=== PATIENT | female | born 1960 | race Caucasian/White ===

== ENCOUNTER → 2020-02-18 | Outpatient (CLI) | payer OTHER ==
--- NOTE | 2020-02-18 17:39 | MR ---
EXAMINATION TYPE: MR shoulder LT wo con DATE OF EXAM: 02/18/2020 COMPARISON: None HISTORY: Lt shoulder pain x 2 mos, decreased ROM, no trauma Multiplanar multiecho imaging of the left shoulder was performed with no contrast. There is mild shoulder joint effusion. Biceps tendon is intact. Subscapularis tendon is intact. Gleno id latisha appear intact. There is slight narrowing of the shoulder joint space. The supraspinatus tendon appears intact. There is 5 mm degenerative cyst in the greater tuberosity of the humerus. The AC joint shows some spur formation and mild impingement on the supraspinatus tendon . I see no focal bone destruction. IMPRESSION: No evidence of rotator cuff tear. Mild osteoarthritis and shoulder joint effusion consistent with non specific synovitis. Mild subacromial impingement due to some spurring at the AC joint.
== END | disposition home or self-care (01) ==
LOC: RADMRIMAIN 08:51
PROVIDERS: ATTEND Orthopaedic Surgery
DX: M19.012 Primary osteoarthritis, left shoulder (principal); M75.42 Impingement syndrome of left shoulder

== ENCOUNTER 2020-03-13 08:55 | Day surgery (SDC) | payer BC, OTHER ==
[2020-03-07 15:29] VITALS: BMI 20.7
--- NOTE | 2020-03-10 13:49 | HP ---
HISTORY AND PHYSICAL CHIEF COMPLAINT: Left shoulder pain and stiffness. 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 She notes a difficult time with any attempted overhead use and at night. She has tried medications in addition to stretching without much relief. PAST MEDICAL HISTORY: Significant for bipolar disorder and anxiety. PAST SURGICAL HISTORY: Significant for previous lumbar surgery. CURRENT MEDICATIONS: Valium, tramadol, risperidone. FAMILY HISTORY: Significant for cancer. SOCIAL HISTORY: Significant for social alcohol use in addition to a 1/2 pack per day tobacco use. REVIEW OF SYSTEMS: 16 point review of systems otherwise reviewed and noncontributory. PHYSICAL EXAMINATION: On examination, the patient is approximately 5 foot 7, 132 pounds of mesomorphic habitus. HEENT exam is nonfocal. NECK: Supple. She is tender about the anterior subacromial space of the left shoulder. She has moderate subacromial crepitus. Active range of motion, forward elevation 90 degrees, external rotation on side 30 degrees, internal rotation to L5. Motor strength is 5/5 for abduction and external rotation. Impingement test, Neer test are positive. Her distal neurovascular appears intact in the left upper extremity. MRI report of the left shoulder from 02/18/2020 shows the rotator cuff appears to be intact. There is some cystic change involving the greater tuberosity. Diffuse synovitis is noted. IMPRESSION: 1. Left shoulder adhesive capsulitis. 2. Left rotator cuff strain. RECOMMENDATIONS: I talked to the patient at length regarding her condition along with treatment options. At this point, she remains quite symptomatic, having pain and stiffness. After thorough discussion, she opts to proceed with manipulation under anesthesia. Risks and benefits were discussed at length in layman's in terms. We will likely perform that as an outpatient procedure utilizing IV sedation. MMODL / IJN: [id number] /
[~2020-03-13 08:55] MED LIST: CLINDAMYCIN 900 MG in DEXTROSE 5% IN WATER 50 ML IVPB ONE; DEXAMETHASONE SOD PHOSPHATE 10 MG/ML 1 ML VIAL IV ONE; LACTATED RINGERS 1,000 ML IV SCH; LIDOCAINE 1% (10MG/ML) FOR IV START INTRADERMA PRN; MIDAZOLAM 2 MG/2 ML VIAL IV PRN; ONDANSETRON 4 MG/2 ML VIAL IVP ONE
[2020-03-13 09:36] VITALS: TEMP 97.4
[2020-03-13] MEDS ORDERED: KETOROLAC 15 MG/ML 1 ML VIAL ONE (10:06)
[2020-03-13] MEDS ORDERED: PROPOFOL 10 MG/ML 20 ML VIAL IV ONE (10:06)
[2020-03-13] MEDS: HYDROmorphone 0.5 MG/0.5 ML SYRINGE IVP PRN ×2 (10:35→10:40)
[2020-03-13] MEDS: fentaNYL (PF) 50 MCG/ML 2 ML AMP IVP PRN ×2 (10:49→10:57)
[2020-03-13 11:34] VITALS: RESP 16
[2020-03-13] MEDS ORDERED: HYDROcodone/APAP 7.5-325MG 1 EACH TAB PO ONE (11:55)
[2020-03-13] MEDS ORDERED: HYDROcodone/APAP 7.5-325MG 1 EACH TAB ONE (11:56)
[2020-03-13 12:00] VITALS: BP 132/77; PULSE 77
--- NOTE | 2020-03-14 14:18 | P.OP ---
Date of Procedure: 03/13/20 Preoperative Diagnosis: Left shoulder adhesive capsulitis Postoperative Diagnosis: Same Procedure(s) Performed: Manipulation under anesthesia Anesthesia: MAC Surgeon: Dimitrios Gonzalez Estimated Blood Loss (ml): 0 Pathology: none sent Condition: stable Disposition: PACU Indications for Procedure: The patient's 59-year-old female who presents with progressive left shoulder stiffness and pain despite conservative measures. Clinically she is noted of evidence of significant adhesive capsulitis. A discussion of the risks and benefits of manipulation under anesthesia was made with patient. She opted proceed. Risks of the surgery to include fracture, tendon rupture, recurrence of stiffness and need for subsequent procedures was discussed. Informed consent was obtained. Operative Findings: As below Description of Procedure: The patient was brought to the recovery room, and after induction of IV sedation the left shoulder was then gently manipulated. First with the arm at the side is able to obtain full external rotation. Moderate adhesions were encountered. I was able to obtain full forward elevation. Again there were moderate adhesions. I felt that adequate motion at this point. She was then monitored until fully awake. There was no blood loss. No complications were incurred.
== END 2020-03-13 12:26 | disposition home or self-care (01) ==
LOC: OR 08:55
PROVIDERS: ATTEND Orthopaedic Surgery
DX: M75.02 Adhesive capsulitis of left shoulder (principal); S43.422A Sprain of left rotator cuff capsule, initial encounter; Z88.1 Allergy status to other antibiotic agents; F41.9 Anxiety disorder, unspecified; Z79.891 Long term (current) use of opiate analgesic; Z79.899 Other long term (current) drug therapy; Z98.1 Arthrodesis status; D69.6 Thrombocytopenia, unspecified; F31.9 Bipolar disorder, unspecified; X58.XXXA Exposure to other specified factors, initial encounter; Z80.9 Family history of malignant neoplasm, unspecified; F17.210 Nicotine dependence, cigarettes, uncomplicated
CPT/HCPCS: 23700; J1100; J2405; J3010; J1885; J2704; J1170

== ENCOUNTER → 2021-04-25 | Outpatient (CLI) | payer OTHER ==
--- NOTE | 2021-04-25 12:39 | XR ---
EXAMINATION TYPE: XR chest 2V DATE OF EXAM: 04/25/2021 COMPARISON: 05/26/13 HISTORY: Shortness of breath TECHNIQUE: Frontal and lateral views of the chest are obtained. FINDINGS: Scattered senescent parenchymal changes noted. Hyperinflation compatible with COPD. No evidence for infiltrate. No evidence for atelectasis. Heart size is stable. Mediastinal structures are stable and grossly unremarkable. No evidence for hilar prominence. Degenerative changes dorsal spine. IMPRESSION: 1. No evidence for acute pulmonary disease.
== END | disposition home or self-care (01) ==
LOC: RADXRMAIN 11:52
PROVIDERS: ATTEND Internal Medicine
DX: R06.02 Shortness of breath (principal)
CPT/HCPCS: 71046

== ENCOUNTER → 2021-08-30 | Outpatient (CLI) | payer OTHER ==
--- NOTE | 2021-08-30 07:51 | CT ---
EXAMINATION TYPE: CT brain wo con DATE OF EXAM: 08/30/2021 COMPARISON: None HISTORY: Headache after fall [address] DLP: [address] of the brain was performed. The ventricles, basal cisterns and sulci overlying the cerebral convexities demonstrate mild enlargem ent. There is no evidence for intracranial hemorrhage or sulcal effacement. There is decreased attenuation about the periventricular white matter and deep white matter of both c erebral hemispheres, compatible with chronic small vessel ischemia. Differential diagnosis does inclu de demyelination. No mass effects are seen.No midline shift. Osseous calvarium is intact. If symptoms persist consider MRI. IMPRESSION: 1. Age related atrophic and chronic small vessel ischemic change without acute intracranial process s een at this time.
== END | disposition home or self-care (01) ==
LOC: RADCTMAIN 07:01
PROVIDERS: ATTEND Internal Medicine
DX: R51.9 Headache, unspecified (principal)
CPT/HCPCS: 70450

== ENCOUNTER 2021-12-10 21:37 | Emergency (ER) | payer OTHER ==
[2021-12-10 21:48] VITALS: RESP 16; TEMP 97.8
[2021-12-10 22:28] LABS: Basophils % (A) 0 %; Eosinophils % (A) 0 %; HCT 43.5 % (34.0-46.0); HGB 14.8 gm/dL (11.4-16.0); Lymphocytes % (A) 58 %; MCH 33.2 pg (25.0-35.0); MCHC 33.9 g/dL (31.0-37.0); MCV 97.7 fL (80.0-100.0); Mean Platelet Volume 8.3; Monocytes # (A) 0.2 k/uL (0-1.0); Monocytes % (A) 3 %; Neutrophils # (A) 2.5 k/uL (1.3-7.7); Neutrophils % (A) 36 %; Platelet Count 174 k/uL (150-450); RBC 4.45 m/uL (3.80-5.40); RDW 12.6 % (11.5-15.5)
[2021-12-10 22:37] LABS: ALT 36 U/L (4-34); AST 41 U/L (14-36); African American GFR (CKD) >90 (>60 ml/min/1.73 sqM); Albumin 4.7 g/dL (3.5-5.0); Alkaline Phosphatase 80 U/L (38-126); Anion Gap 12 mmol/L; Blood Urea Nitrogen 4 mg/dL (7-17); Calcium 9.5 mg/dL (8.4-10.2); Carbon Dioxide 21 mmol/L (22-30); Chloride 106 mmol/L (98-107); Glucose 98 mg/dL (74-99); Non-African American GFR(CKD) >90 (>60 ml/min/1.73 sqM); Potassium 3.9 mmol/L (3.5-5.1); Sodium 139 mmol/L (137-145); Total Bilirubin 0.2 mg/dL (0.2-1.3); Total Protein 7.4 g/dL (6.3-8.2)
[2021-12-10 22:44] LABS: Partial Thromboplastin Time 23.3 sec (22.0-30.0); Prothrombin Time 10.6 sec (9.0-12.0)
[2021-12-11] MEDS ORDERED: SODIUM CHLORIDE 0.9% 500 ML 500 ML IV STA (01:54)
[2021-12-11] MEDS ORDERED: MECLIZINE 12.5 MG TAB PO STA (01:55)
--- NOTE | 2021-12-11 02:56 | CT ---
EXAMINATION TYPE: CT brain wo con DATE OF EXAM: 12/11/2021 COMPARISON: 08/30/2021 HISTORY: DIZZY, WEAKNESS CT DLP: 1094.1 mGycm Automated exposure control for dose reduction was used. Ventricles and sulci appear normal. There is no mass effect or midline shift. No sign of intracranial hemorrhage. Calvarium is intact. There is normal aeration of the mastoid sinuses. No evidence of cer ebral edema. IMPRESSION: Negative unenhanced head CT scan. No change compared to the old exam.
--- NOTE | 2021-12-11 05:05 | ED ---
Dizziness HPI - General Chief Complaint: Syncope Stated Complaint: Weakness,Dizziness Time Seen by Provider: 12/11/21 01:36 Source: patient Mode of arrival: wheelchair Limitations: no limitations - History of Present Illness Initial Comments: This patient is a 61-year-old woman who presents with complaint that she has been having some dizziness going back a number days. States it was worse today. Today she had an episode in which she passed out. She denies having any trauma or injury as a result. She has not hit her head or neck. Patient did not have chest pain, dyspnea, palpitations. She currently denies any pains. MD Complaint: dizziness Onset/Timin -: days(s) Timing: gradual onset Description: lightheadedness, off-balance History of Same: No History of Trauma: No Severity: moderate Improves With: remaining still Worsens With: movement Associated Symptoms: denies other symptoms - Related Data Home Medications Medication Instructions Recorded Confirmed Diazepam [Valium] 10 mg PO HS 03/09/20 03/09/20 risperiDONE [RisperDAL] 2 mg PO HS 03/09/20 03/09/20 traMADol HCL [Ultram] 50 mg PO TID PRN 03/09/20 03/09/20 traZODone HCL 50 mg PO HS PRN 03/09/20 03/09/20 Previous Rx's Medication Instructions Recorded HYDROcodone/APAP 7.5-325MG [[place] 1 each PO Q6HR PRN #12 tab 03/13/20 7.5] Allergies Allergy/AdvReac Type Severity Reaction Status Date / Time cephalexin monohydrate Allergy Rash/Hives Verified 12/10/21 21:44 [From Keflex] Review of Systems ROS Statement: Those systems with pertinent positive or pertinent negative responses have been documented in the HPI. ROS Other: All systems not noted in ROS Statement are negative. Constitutional: Denies: fever, chills, weakness Respiratory: Denies: cough, dyspnea Cardiovascular: Reports: syncope. Denies: chest pain, palpitations, orthopnea, edema Gastrointestinal: Denies: abdominal pain, nausea, vomiting, diarrhea Genitourinary: Denies: dysuria, hematuria Musculoskeletal: Denies: back pain Skin: Denies: rash Neurological: Denies: headache, weakness, numbness, confusion Past Medical History Past Medical History: Musculoskeletal Disorder Additional Past Medical History / Comment(s): Hermelindaud's disease. Frozen Lt shoulder. History of Any Multi-Drug Resistant Organisms: None Reported Past Surgical History: Back Surgery Additional Past Surgical History / Comment(s): Cervical fusion C6-7 in 1999. Colonoscopy. Past Anesthesia/Blood Transfusion Reactions: No Reported Reaction Past Psychological History: Anxiety Smoking Status: Current every day smoker Past Alcohol Use History: Daily Past Drug Use History: None Reported - Past Family History Father Family Medical History: Cancer Additional Family Medical History / Comment(s): throat cancer Mother Family Medical History: Cancer Additional Family Medical History / Comment(s): lung cancer General Exam Limitations: no limitations General appearance: alert, in no apparent distress Head exam: Present: atraumatic, normocephalic Eye exam: Present: normal appearance. Absent: scleral icterus, conjunctival injection ENT exam: Present: normal oropharynx, mucous membranes dry Neck exam: Present: normal inspection, full ROM Respiratory exam: Present: normal lung sounds bilaterally. Absent: respiratory distress, wheezes, rales, rhonchi, stridor Cardiovascular Exam: Present: regular rate, normal rhythm, normal heart sounds. Absent: systolic murmur, diastolic murmur, rubs, gallop GI/Abdominal exam: Present: soft. Absent: distended, tenderness, guarding, rebound, rigid, mass Extremities exam: Present: normal inspection, normal capillary refill. Absent: pedal edema, calf tenderness Back exam: Present: normal inspection. Absent: CVA tenderness (R), CVA t enderness (L) Neurological exam: Present: alert, oriented X3, CN II-XII intact Skin exam: Present: warm, dry, intact, normal color. Absent: rash Course Vital Signs 12/10/21 12/11/21 12/11/21 21:45 02:06 03:00 Temperature 97.8 F Pulse Rate 69 77 80 Respiratory 16 16 16 Rate Blood Pressure 89/61 116/72 121/69 O2 Sat by Pulse 96 98 98 Oximetry 12/11/21 12/11/21 04:13 05:53 Temperature 97.8 F Pulse Rate 72 78 Respiratory 16 16 Rate Blood Pressure 110/67 109/70 O2 Sat by Pulse 97 95 Oximetry Medical Decision Making - Lab Data Result diagrams: 12/10/21 21:53 12/10/21 21:53 Lab Results 12/10/21 12/10/21 12/10/21 Range/Units 21:53 21:53 21:53 WBC 7.0 (3.8-10.6) k/uL RBC 4.45 (3.80-5.40) m/uL Hgb 14.8 (11.4-16.0) gm/dL Hct 43.5 (34.0-46.0) % MCV 97.7 (80.0-100.0) fL MCH 33.2 (25.0-35.0) pg MCHC 33.9 (31.0-37.0) g/dL RDW 12.6 (11.5-15.5) % Plt Count 174 (150-450) k/uL MPV 8.3 Neutrophils % 36 % Lymphocytes % 58 % Monocytes % 3 % Eosinophils % 0 % Basophils % 0 % Neutrophils # 2.5 (1.3-7.7) k/uL Lymphocytes # 4.0 (1.0-4.8) k/uL Monocytes # 0.2 (0-1.0) k/uL Eosinophils # 0.0 (0-0.7) k/uL Basophils # 0.0 (0-0.2) k/uL PT 10.6 (9.0-12.0) sec INR 1.0 (<1.2) APTT 23.3 (22.0-30.0) sec Sodium 139 (137-145) mmol/L Potassium 3.9 (3.5-5.1) mmol/L Chloride 106 (98-107) mmol/L Carbon Dioxide 21 L (22-30) mmol/L Anion Gap 12 mmol/L BUN 4 L (7-17) mg/dL Creatinine 0.62 (0.52-1.04) mg/dL Est GFR (CKD-EPI)AfAm >90 (>60 ml/min/1.73 sqM) Est GFR (CKD-EPI)NonAf >90 (>60 ml/min/1.73 sqM) Glucose 98 (74-99) mg/dL Calcium 9.5 (8.4-10.2) mg/dL Total Bilirubin 0.2 (0.2-1.3) mg/dL AST 41 H (14-36) U/L ALT 36 H (4-34) U/L Alkaline Phosphatase 80 (38-126) U/L Troponin I (0.000-0.034) ng/mL Total Protein 7.4 (6.3-8.2) g/dL Albumin 4.7 (3.5-5.0) g/dL Urine Color Urine Appearance (Clear) Urine pH (5.0-8.0) Ur Specific [place] (1.001-1.035) Urine Protein (Negative) Urine Glucose (UA) (Negative) Urine Ketones (Negative) Urine Blood (Negative) Urine Nitrite (Negative) Urine Bilirubin (Negative) Urine Urobilinogen (<2.0) mg/dL Ur Leukocyte Esterase (Negative) Serum Alcohol mg/dL 12/10/21 12/11/21 12/11/21 Range/Units 21:53 02:29 04:50 WBC (3.8-10.6) k/uL RBC (3.80-5.40) m/uL Hgb (11.4-16.0) gm/dL Hct (34.0-46.0) % MCV (80.0-100.0) fL MCH (25.0-35.0) pg MCHC (31.0-37.0) g/dL RDW (11.5-15.5) % Plt Count (150-450) k/uL MPV Neutrophils % % Lymphocytes % % Monocytes % % Eosinophils % % Basophils % % Neutrophils # (1.3-7.7) k/uL Lymphocytes # (1.0-4.8) k/uL Monocytes # (0-1.0) k/uL Eosinophils # (0-0.7) k/uL Basophils # (0-0.2) k/uL PT (9.0-12.0) sec INR (<1.2) APTT (22.0-30.0) sec Sodium (137-145) mmol/L Potassium (3.5-5.1) mmol/L Chloride (98-107) mmol/L Carbon Dioxide (22-30) mmol/L Anion Gap mmol/L BUN (7-17) mg/dL Creatinine (0.52-1.04) mg/dL Est GFR (CKD-EPI)AfAm (>60 ml/min/1.73 sqM) Est GFR (CKD-EPI)NonAf (>60 ml/min/1.73 sqM) Glucose (74-99) mg/dL Calcium (8.4-10.2) mg/dL Total Bilirubin (0.2-1.3) mg/dL AST (14-36) U/L ALT (4-34) U/L Alkaline Phosphatase (38-126) U/L Troponin I <0.012 (0.000-0.034) ng/mL Total Protein (6.3-8.2) g/dL Albumin (3.5-5.0) g/dL Urine Color Light Yellow Urine Appearance Clear (Clear) Urine pH 5.0 (5.0-8.0) Ur Specific [place] 1.004 (1.001-1.035) Urine Protein Negative (Negative) Urine Glucose (UA) Negative (Negative) Urine Ketones Negative (Negative) Urine Blood Negative (Negative) Urine Nitrite Negative (Negative) Urine Bilirubin Negative (Negative) Urine Urobilinogen <2.0 (<2.0) mg/dL Ur Leukocyte Esterase Negative (Negative) Serum Alcohol 92 mg/dL Disposition Clinical Impression: Dizziness, Alcohol intoxication Disposition: HOME SELF-CARE Condition: Good Instructions (If sedation given, give patient instructions): Dizziness (ED) Is patient prescribed a controlled substance at d/c from ED?: No Referrals: None,Stated [Primary Care Provider] - 1-2 days
[2021-12-11 05:24] LABS: Appearance,Urine Clear (Clear); Bilirubin,Urine Negative (Negative); Blood,Urine Negative (Negative); Color,Urine Light Yellow; Glucose,Urine (UA) Negative (Negative); Ketones,Urine Negative (Negative); Leukocyte Esterase,Urine Negative (Negative); Nitrite,Urine Negative (Negative); Protein,Urine Negative (Negative); Specific Gravity,Urine 1.004 (1.001-1.035); Urobilinogen,Urine <2.0 mg/dL (<2.0)
[2021-12-11 05:54] VITALS: BP 109/70; PULSE 78
== END 2021-12-11 06:02 | disposition home or self-care (01) ==
LOC: EC 21:37
DX: R42 Dizziness and giddiness (principal); F10.129 Alcohol abuse with intoxication, unspecified; F41.9 Anxiety disorder, unspecified; F17.200 Nicotine dependence, unspecified, uncomplicated; Z79.899 Other long term (current) drug therapy; Y90.4 Blood alcohol level of 80-99 mg/100 ml
CPT/HCPCS: 36415 ×2; 80053; 84484; 85025; 85610; 85730; 81003; 70450; 99284; G0480; 80320; 93005

== ENCOUNTER 2022-02-15 11:35 | Observation (INO) | payer OTHER ==
[2022-02-15] MEDS ORDERED: SODIUM CHLORIDE 0.9% 1,000 ML IV STA ×2 (12:26)
[2022-02-15 12:39] LABS: Basophils % (A) 0 %; Eosinophils % (A) 0 %; HGB 13.2 gm/dL (11.4-16.0); Lymphocytes # (A) 1.3 k/uL (1.0-4.8); Lymphocytes % (A) 29 %; MCH 32.7 pg (25.0-35.0); MCV 99.2 fL (80.0-100.0); Mean Platelet Volume 8.3; Monocytes # (A) 0.3 k/uL (0-1.0); Monocytes % (A) 6 %; Neutrophils # (A) 2.9 k/uL (1.3-7.7); Neutrophils % (A) 63 %; Platelet Count 156 k/uL (150-450); RBC 4.03 m/uL (3.80-5.40); RDW 12.6 % (11.5-15.5); WBC 4.6 k/uL (3.8-10.6)
--- NOTE | 2022-02-15 12:48 | ED ---
Seizure HPI - General Chief Complaint: Seizure Stated Complaint: Passing out Time Seen by Provider: 02/15/22 12:14 Source: patient, RN notes reviewed Mode of arrival: ambulatory Limitations: no limitations - History of Present Illness Initial Comments: 61-year-old female history of alcohol abuse in the past states for the past one half months she's been having episodes where she'll pass out and reportedly shake. She states she had an episode last night her third and last month and a half she fell against a counter she complains of left for had pain generalized neck pain and left rib pain. She denies any fevers chills nausea vomiting sweats palpitations shortness of breath loss of function to her upper or lower extremities. No history of seizure disorder history of thyroid disease no recent change her diet she states she states he is drinks one beer 6 months or so now. Denies any drug use. MD Complaint: possible seizure - Related Data Home Medications Medication Instructions Recorded Confirmed No Known Home Medications 02/15/22 02/15/22 Allergies Allergy/AdvReac Type Severity Reaction Status Date / Time cephalexin monohydrate Allergy Rash/Hives Verified 02/15/22 14:41 [From Keflex] Review of Systems ROS Statement: Those systems with pertinent positive or pertinent negative responses have been documented in the HPI. ROS Other: All systems not noted in ROS Statement are negative. Past Medical History Past Medical History: Musculoskeletal Disorder Additional Past Medical History / Comment(s): Raynaud's disease. Frozen Lt shoulder. History of Any Multi-Drug Resistant Organisms: None Reported Past Surgical History: Back Surgery Additional Past Surgical History / Comment(s): Cervical fusion C6-7 in 1999. Colonoscopy. Past Anesthesia/Blood Transfusion Reactions: No Reported Reaction Past Psychological History: Anxiety Smoking Status: Current every day smoker Past Alcohol Use History: Daily Past Drug Use History: None Reported - Past Family History Father Family Medical History: Cancer Additional Family Medical History / Comment(s): throat cancer Mother Family Medical History: Cancer Additional Family Medical History / Comment(s): lung cancer General Exam - General Exam Comments Initial Comments: This is a well-developed well-nourished awake alert oriented 4 female she demo nstrated Lucho Coma Scale of 15 Limitations: no limitations General appearance: alert, in no apparent distress Head exam: Present: normocephalic, normal inspection, other (Mild tenderness palpation of the left forehead no step-off no crepitation no obvious wound seen at this time) Eye exam: Present: normal appearance, PERRL, EOMI. Absent: scleral icterus, conjunctival injection, periorbital swelling ENT exam: Present: normal exam, mucous membranes moist Neck exam: Present: tenderness (Mild paraspinous muscle tenderness no stridor JVD or bruits), full ROM, other (Well-healed surgical scar right anterior neck from a cervical fusion). Absent: meningismus, lymphadenopathy Respiratory exam: Present: normal lung sounds bilaterally, chest wall tenderness (Mild tenderness palpation along the left anterior lateral lower ribs no obvious external injuries seen. No step-off or crepitation). Absent: respiratory distress, wheezes, rales, rhonchi, stridor Cardiovascular Exam: Present: regular rate, normal rhythm, normal heart sounds. Absent: systolic murmur, diastolic murmur, rubs, gallop, clicks GI/Abdominal exam: Present: soft, normal bowel sounds. Absent: distended, tenderness, guarding, rebound, rigid, bruit, pulsatile mass Extremities exam: Present: normal inspection, full ROM, normal capillary refill. Absent: tenderness, pedal edema, joint swelling, calf tenderness Back exam: Present: normal inspection Neurological exam: Present: alert, oriented X3, CN II-XII intact Psychiatric exam: Present: normal affect, normal mood Skin exam: Present: warm, dry, intact, normal color. Absent: rash Course Vital Signs 02/15/22 02/15/22 11:50 13:43 Temperature 98.5 F Pulse Rate 65 63 Respiratory 16 16 Rate Blood Pressure 140/85 142/89 O2 Sat by Pulse 100 97 Oximetry - Reevaluation(s) Reevaluation #1: 02/15/22 13:24 EKG compared with one dated 12/10/21 Medical Decision Making - Medical Decision Making I did discuss findings with the patient regarding the findings he does have evidence of a left eighth and ninth rib fracture. Patient does require admission due to the syncopal episodes. I did discuss the case first with Dr. Gomez from surgery who stated the patient be admitted medically with her on consult. I did discuss case with Dr. Brewster who did come down to see the patient. - Lab Data Result diagrams: 02/15/22 12:28 02/15/22 12:28 Lab Results 02/15/22 02/15/22 02/15/22 Range/Units 12:28 12:28 12:28 WBC 4.6 (3.8-10.6) k/uL RBC 4.03 (3.80-5.40) m/uL Hgb 13.2 (11.4-16.0) gm/dL Hct 40.0 (34.0-46.0) % MCV 99.2 (80.0-100.0) fL MCH 32.7 (25.0-35.0) pg MCHC 33.0 (31.0-37.0) g/dL RDW 12.6 (11.5-15.5) % Plt Count 156 (150-450) k/uL MPV 8.3 Neutrophils % 63 % Lymphocytes % 29 % Monocytes % 6 % Eosinophils % 0 % Basophils % 0 % Neutrophils # 2.9 (1.3-7.7) k/uL Lymphocytes # 1.3 (1.0-4.8) k/uL Monocytes # 0.3 (0-1.0) k/uL Eosinophils # 0.0 (0-0.7) k/uL Basophils # 0.0 (0-0.2) k/uL D-Dimer 0.56 (<0.60) mg/L FEU Sodium 135 L (137-145) mmol/L Potassium 3.9 (3.5-5.1) mmol/L Chloride 101 (98-107) mmol/L Carbon Dioxide 26 (22-30) mmol/L Anion Gap 8 mmol/L BUN 11 (7-17) mg/dL Creatinine 0.65 (0.52-1.04) mg/dL Est GFR (CKD-EPI)AfAm >90 (>60 ml/min/1.73 sqM) Est GFR (CKD-EPI)NonAf >90 (>60 ml/min/1.73 sqM) Glucose 107 H (74-99) mg/dL Calcium 9.4 (8.4-10.2) mg/dL Magnesium 1.8 (1.6-2.3) mg/dL Total Bilirubin 0.3 (0.2-1.3) mg/dL AST 40 H (14-36) U/L ALT 43 H (4-34) U/L Alkaline Phosphatase 104 (38-126) U/L Creatine Kinase 27 L (30-135) U/L Troponin I (0.000-0.034) ng/mL Total Protein 7.2 (6.3-8.2) g/dL Albumin 4.5 (3.5-5.0) g/dL TSH 2.470 (0.465-4.680) mIU/L Urine Color Urine Appearance (Clear) Urine pH (5.0-8.0) Ur Specific [place] (1.001-1.035) Urine Protein (Negative) Urine Glucose (UA) (Negative) Urine Ketones (Negative) Urine Blood (Negative) Urine Nitrite (Negative) Urine Bilirubin (Negative) Urine Urobilinogen (<2.0) mg/dL Ur Leukocyte Esterase (Negative) Urine RBC (0-5) /hpf Urine WBC (0-5) /hpf Ur Squamous Epith Cells (0-4) /hpf Urine Bacteria (None) /hpf Urine Mucus (None) /hpf Serum Alcohol mg/dL 02/15/22 02/15/22 02/15/22 Range/Units 12:28 12:45 13:40 WBC (3.8-10.6) k/uL RBC (3.80-5.40) m/uL Hgb (11.4-16.0) gm/dL Hct (34.0-46.0) % MCV (80.0-100.0) fL MCH (25.0-35.0) pg MCHC (31.0-37.0) g/dL RDW (11.5-15.5) % Plt Count (150-450) k/uL MPV Neutrophils % % Lymphocytes % % Monocytes % % Eosinophils % % Basophils % % Neutrophils # (1.3-7.7) k/uL Lymphocytes # (1.0-4.8) k/uL Monocytes # (0-1.0) k/uL Eosinophils # (0-0.7) k/uL Basophils # (0-0.2) k/uL D-Dimer (<0.60) mg/L FEU Sodium (137-145) mmol/L Potassium (3.5-5.1) mmol/L Chloride (98-107) mmol/L Carbon Dioxide (22-30) mmol/L Anion Gap mmol/L BUN (7-17) mg/dL Creatinine (0.52-1.04) mg/dL Est GFR (CKD-EPI)AfAm (>60 ml/min/1.73 sqM) Est GFR (CKD-EPI)NonAf (>60 ml/min/1.73 sqM) Glucose (74-99) mg/dL Calcium (8.4-10.2) mg/dL Magnesium (1.6-2.3) mg/dL Total Bilirubin (0.2-1.3) mg/dL AST (14-36) U/L ALT (4-34) U/L Alkaline Phosphatase (38-126) U/L Creatine Kinase (30-135) U/L Troponin I <0.012 (0.000-0.034) ng/mL Total Protein (6.3-8.2) g/dL Albumin (3.5-5.0) g/dL TSH (0.465-4.680) mIU/L Urine Color Yellow Urine Appearance Cloudy H (Clear) Urine pH 6.5 (5.0-8.0) Ur Specific [place] 1.019 (1.001-1.035) Urine Protein Trace H (Negative) Urine Glucose (UA) Negative (Negative) Urine Ketones Negative (Negative) Urine Blood Negative (Negative) Urine Nitrite Negative (Negative) Urine Bilirubin Negative (Negative) Urine Urobilinogen <2.0 (<2.0) mg/dL Ur Leukocyte Esterase Small H (Negative) Urine RBC 1 (0-5) /hpf Urine WBC 4 (0-5) /hpf Ur Squamous Epith Cells 13 H (0-4) /hpf Urine Bacteria Rare H (None) /hpf Urine Mucus Few H (None) /hpf Serum Alcohol <10 mg/dL - EKG Data -: EKG Interpreted by Md EKG shows normal: sinus rhythm EKG Comments: Sinus bradycardia rate 58. Interval 153 QRS duration 86 QT/QTC 14/[address] configuration - Radiology Data Radiology results: report reviewed (Imaging reviewed as well as report no acute findings.), image reviewed Disposition Clinical Impression: Syncope and collapse, Forehead contusion, Cervical strain Disposition: ADMITTED IP TO THIS [facility] Condition: Stable Referrals: None,Stated [REFERRING] - 1-2 days Decision Date: 02/15/22 Decision Time: 16:00
[2022-02-15 12:50] LABS: ALT 43 U/L (4-34); AST 40 U/L (14-36); African American GFR (CKD) >90 (>60 ml/min/1.73 sqM); Albumin 4.5 g/dL (3.5-5.0); Alkaline Phosphatase 104 U/L (38-126); Anion Gap 8 mmol/L; Blood Urea Nitrogen 11 mg/dL (7-17); Calcium 9.4 mg/dL (8.4-10.2); Carbon Dioxide 26 mmol/L (22-30); Chloride 101 mmol/L (98-107); Creatine Kinase 27 U/L (30-135); Glucose 107 mg/dL (74-99); Magnesium 1.8 mg/dL (1.6-2.3); Non-African American GFR(CKD) >90 (>60 ml/min/1.73 sqM); Potassium 3.9 mmol/L (3.5-5.1); Sodium 135 mmol/L (137-145); Total Bilirubin 0.3 mg/dL (0.2-1.3); Total Protein 7.2 g/dL (6.3-8.2)
[2022-02-15 12:56] LABS: Appearance,Urine Cloudy (Clear); Bacteria,Urine Rare /hpf; Bilirubin,Urine Negative (Negative); Blood,Urine Negative (Negative); Color,Urine Yellow; Glucose,Urine (UA) Negative (Negative); Ketones,Urine Negative (Negative); Leukocyte Esterase,Urine Small (Negative); Mucus,Urine Few /hpf; Nitrite,Urine Negative (Negative); PH, Urine 6.5 (5.0-8.0); Protein,Urine Trace (Negative); RBC,Urine 1 /hpf (0-5); Specific Gravity,Urine 1.019 (1.001-1.035); Squamous Epithelial Cell,Urine 13 /hpf (0-4); Urobilinogen,Urine <2.0 mg/dL (<2.0); WBC,Urine 4 /hpf (0-5)
[2022-02-15] MEDS ORDERED: KETOROLAC 15 MG/ML 1 ML VIAL IVP STA (13:20)
--- NOTE | 2022-02-15 13:31 | XR ---
EXAMINATION TYPE: PA chest and left rib series, 5 views DATE OF EXAM: 02/15/2022 Comparison: 04/25/2021 Clinical History: 61 year-old female with syncope, Trauma Findings: The cardiomediastinal silhouette, aorta, and pulmonary vasculature are within normal limits. Mild hy perinflation. No consolidation or pleural effusion. There is a nondisplaced fracture of the ninth anterior rib on the oblique view. Questionable nondispl aced fracture left anterior eighth rib. Impression: COPD. No acute cardiopulmonary process. Subtle nondisplaced fracture left anterior ninth rib. Questio nable nondisplaced fracture left anterior eighth rib.
--- NOTE | 2022-02-15 13:52 | CT ---
EXAMINATION TYPE: CT brain sullyine wo con DATE OF EXAM: 02/15/2022 COMPARISON: Brain 12/19/2021 HISTORY: 61-year-old female with pain after Trauma, syncope. Pt had 3 recent falls. Fell and hit head on sink last night. CT DLP: 1232.4 mGycm Automated exposure control for dose reduction was used. Technique: Examination of the head was done in axial plane without intravenous contrast. Coronal and sagittal reconstructions performed. CT of the cervical spine was obtained in axial plane without intravenous injection of contrast mater ial. Coronal and sagittal reformatted images were obtained from the axial views for evaluation of f ractures, spinal alignment and canal. FINDINGS: Head: There is no evidence of acute intracranial hemorrhage, acute ischemic changes, mass, mass-effect, or extra-axial fluid collection. There is no effacement of cerebral sulci or basal subarachnoid cister ns. There is no hydrocephalus. There is no midline shift. Miles-white matter distinction is preserv ed. Rightward nasal septal deviation. Paranasal sinuses and mastoid air cells are pneumatized. Orbits and globes are intact. Cervical spine: No craniocervical junction abnormality, predental space widening, or prevertebral soft tissue swellin g. Preserved alignment of the cervical spine. 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 Uncovertebral joint and facet arthropathy below this fu latosha at C7-T1 particularly towards the right. Disc osteophyte complex above the fusion at C5-C6 appears to mildly narrow the spinal canal. No acute fracture of the cervical spine. There is mild bilateral neuroforaminal stenosis at C5-C6. Sagittal and coronal reformatted images confirm above findings. COMBINED IMPRESSION: 1. No acute intracranial abnormality seen. 2. No acute fracture or malalignment of the cervical spine. Congenital vertebral body fusion of C6-C7 with some associated degenerative change above and below this level.
[2022-02-15] MEDS ORDERED: NALOXONE 0.4 MG/ML 1 ML VIAL IV PRN ×2 (16:58→17:01)
[2022-02-15] MEDS ORDERED: ACETAMINOPHEN TAB 325 MG TAB PO PRN (16:58)
[2022-02-16] MEDS ORDERED: KETOROLAC 15 MG/ML 1 ML VIAL IVP PRN (08:29)
[2022-02-16] MEDS: HEPARIN SODIUM,PORCINE/PF 5,000 UNIT/0.5 ML SYRINGE SQ SCH ×2 (09:08→22:45)
--- NOTE | 2022-02-16 09:22 | P.HPIM ---
History of Present Illness H&P Date: 02/16/22 Patient is a 61-year-old female with PMH of anxiety that presents the ED after 2 syncopal episodes. Patient reports 3 syncopal episodes over the past month and a half. She had 2 syncopal episodes the day prior to admission which prompted her to come to the ED. Patient reports being at her usual health, when she got up to use the bathroom. She was on the toilet, had not voided when she had her first syncopal epside. She reports no prodrome. No lightheadedness, diaphoresis, nausea or vomiting prior to her syncope. Patient reports loss of consciousness for 20 minutes. She reports witnessed shaking of her extremities. No tongue biting. No bladder or bowel incontinence. She reports feeling weak and confused for a few minutes after regaining consciousness. She had another similar syncopal episode after her boyfriend helped her off the floor. This prompted her to come to the ED. She reports no history of seizures. She currently reports left sided rib pain, 8/10 in severity, worse with deep inspiration. She denies any headache, lower extremity edema, N/V, fever or chills, palpitations, changes in urination or bowel habits. No changes in appeite or weight. She denies any current lightheadedness, numbness/weakness/tinging of the extremities. In the ED, she was noted to be bradycardic with a heart rate in the 40s. CBC was unremarkable. DDimer was negative. CMP showed sodium of 135, glucose of 107, AST 40, ALT 43, CPK 27. Troponin was < 0.012 with EKG showing sinus bradycardia. TSH was within normal limits. CXR showed COPD, nondisplaced 9th rib fracture, possibly 8th rib as well. CT head and C-spine was negative for acute changes. Patient is admitted after a syncopal episode and pain control. Review of systems is performed and is negative except above. General: [non toxic], [no distress], [appears at stated age] Derm: [warm], [dry] Head: [atraumatic], [normocephalic], [symmetric] Eyes: [EOMI], [no lid lag], [anicteric sclera] Mouth: [no lip lesion], [mucus membranes moist] Cardiovascular: [Bradycardic], [no murmur], [positive DP pulse bilateral], [tenderness to palpation over the left 8th and 9th rib] Lungs: [CTA bilateral], [no rhonchi, no rales] , [no accessory muscle use] Abdominal: [soft], [ nontender to palpation], [no guarding], [no appreciable organomegaly] Ext: [no gross muscle atrophy], [no edema], [no contractures] Neuro: [no focal neuro deficits] Psych: [Alert], [oriented], [appropriate affect] #Syncopal episode #Sinus bradycardia #Left rib fracture #Transaminitis #Abnormal UA Patient presents to the hospital after 2 syncopal episodes with no prodrome. Concerns for cardiac arrhythmia vs. seizures. Trend troponins/EKG to rule out ACS. Obtain orthostats. Telemetry monitoring. Fall precautions and advanced neuochecks. Echocardiogram ordered. Cardiology consulted for bradycardia. Neurology consulted for possible seizures. PT and OT consulted to work with this patient. Continue pain control for left sided rib fractures. Pulmonology consulted in the ED. Toradol as needed. Incentive spirometer. Unknowns etiology for elevated liver enzymes. Continue to monitor. Patient denies dysuria. No antibiotics for now. Continue to monitor. DVT prophylaxis: [Heparin] Discussed with: [Patient] Anticipated discharge: [1-2 days] Anticipated discharge place: [Home] A total of [35] minutes was spent on the care of this complex patient more than 50% of the time was spent in counseling and care coordination. Patient names her boyfriend TJ decision maker if she cant make decisions for herself. Patient would like to be FULL CODE. Past Medical History Past Medical History: Musculoskeletal Disorder Additional Past Medical History / Comment(s): Raynaud's disease. Frozen Lt shoulder. History of Any Multi-Drug Resistant Organisms: None Reported Past Surgical History: Back Surgery Additional Past Surgical History / Comment(s): Cervical fusion C6-7 in 1999. Colonoscopy. Past Anesthesia/Blood Transfusion Reactions: No Reported Reaction Past Psychological History: Anxiety Additional Psychological History / Comment(s): denies depression hx Smoking Status: Current every day smoker Past Alcohol Use History: Daily Additional Past Alcohol Use History / Comment(s): Smoking since 1979, 1/2 ppd. 7-8 beers per week est Past Drug Use History: None Reported Additional Drug Use History / Comment(s): denies current use - Past Family History Father Family Medical History: Cancer Additional Family Medical History / Comment(s): throat cancer Mother Family Medical History: Cancer Additional Family Medical History / Comment(s): lung cancer Medications and Allergies Home Medications Medication Instructions Recorded Confirmed Type No Known Home Medications 02/15/22 02/15/22 History Allergies Allergy/AdvReac Type Severity Reaction Status Date / Time cephalexin monohydrate Allergy Rash/Hives Verified 02/15/22 14:41 [From Keflex] Physical Exam Vitals: Vital Signs Temp Pulse Pulse Pulse Pulse Resp BP 02/16/22 07:00 98.1 F 72 63 66 16 02/16/22 04:30 98.0 F 46 L 15 02/16/22 02:00 16 02/15/22 20:07 98.2 F 61 16 02/15/22 17:18 66 16 157/100 02/15/22 13:43 63 16 142/89 02/15/22 11:50 98.5 F 65 16 140/85 BP BP BP BP Pulse Ox 02/16/22 07:00 119/75 109/71 138/80 97 02/16/22 04:30 145/82 96 02/16/22 02:00 02/15/22 20:07 125/74 95 02/15/22 17:18 98 02/15/22 13:43 97 02/15/22 11:50 100 Intake and Output 02/15/22 02/16/22 02/16/22 22:59 06:59 14:59 Other: # Voids 1 1 Weight 61.689 kg Results CBC & Chem 7: 02/15/22 12:28 02/15/22 12:28 Labs: Abnormal Lab Results - Last 24 Hours (Table) 02/15/22 02/15/22 Range/Units 12:28 12:45 Sodium 135 L (137-145) mmol/L Glucose 107 H (74-99) mg/dL AST 40 H (14-36) U/L ALT 43 H (4-34) U/L Creatine Kinase 27 L (30-135) U/L Urine Appearance Cloudy H (Clear) Urine Protein Trace H (Negative) Ur Leukocyte Esterase Small H (Negative) Ur Squamous Epith Cells 13 H (0-4) /hpf Urine Bacteria Rare H (None) /hpf Urine Mucus Few H (None) /hpf Thrombosis Risk Factor Assmnt - Choose All That Apply Any of the Below Risk Factors Present?: Yes Each Factor Represents 1 point: Age 41-60 years Other Risk Factors: No Other congenital or acquired thrombophilia - If yes, enter type in comment: No Thrombosis Risk Factor Assessment Total Risk Factor Score: 1 Thrombosis Risk Factor Assessment Level: Low Risk
--- NOTE | 2022-02-16 12:00 | P.CRDCN ---
History of Present Illness Consult date: 02/16/22 Requesting physician: Kayli Bonilla Reason for Consult (text): bradycardia, syncope Chief complaint: syncope History of present illness: This is a pleasant 61-year-old female patient with a history of cervical spine surgery 20-25 years ago and a half pack-a-day smoker for 30 years. Denies history of hypertension, hyperlipidemia, diabetes, CAD or family history of CAD. Is here for complaints of syncope. Her first episode was 6-8 weeks ago she was in her kitchen putting away dishes she had a brief syncopal episode she was evaluated here in the emergency department and discharged home. Since that time she's been having complaints of tremors. She presented this admission with comp laints of syncope 2. Was about 9:30 at night and she was using the restroom, urinating when she had a syncopal episode while sitting on the toilet. She was out for just a couple minutes. Her boyfriend was trying to help her up and she again had an episode of syncope that lasted a few minutes at that time she hit her head on the toilet and her ribs, bathroom counter. She does have evidence of rib fracture on x-ray. According to the patient she's been confused following these episodes she does not recall the episodes. She has no warning of these episodes. Computed tomography scan of the brain and C-spine revealed no acute intracranial abnormality and no acute fracture or malalignment of the cervical spine, congenital vertebral body fusion of C6 to C7 with some associated degenerative change above and below this level. She's denies any complaints of dizziness or lightheadedness. She denies any loss of bowel or bladder function. No evidence of seizure-like activity. EKG on admission showed sinus mechanism with a heart rate of 58 bpm. She did have some nighttime bradycardia with a heart rate in the 40s that was asymptomatic. Orthostatic blood pressures were checked this morning and were positive with a supine blood pressure 138/80, seated blood pressure 119/75 and a standing blood pressure of 109/71. Labs showed troponins negative 2. She is on no home medications. Denies excessive caffeine intake. Has a rare alcohol intake of one beer about every 6 months. Upon examination she is resting comfortably in bed. She complains that she is sore from the fall but otherwise is feeling well. She denies any chest discomfort, shortness of breath, palpitations, dizziness or lightheadedness. Prior to the episode 6-8 weeks ago she's had no history of syncopal episodes. Past Medical History Past Medical History: Musculoskeletal Disorder Additional Past Medical History / Comment(s): Raynaud's disease. Frozen Lt shoulder. History of Any Multi-Drug Resistant Organisms: None Reported Past Surgical History: Back Surgery Additional Past Surgical History / Comment(s): Cervical fusion C6-7 in 1999. Colonoscopy. Past Anesthesia/Blood Transfusion Reactions: No Reported Reaction Past Psychological History: Anxiety Additional Psychological History / Comment(s): denies depression hx Smoking Status: Current every day smoker Past Alcohol Use History: Daily Additional Past Alcohol Use History / Comment(s): Smoking since 1979, 1/ ppd. 7-8 beers per week est Past Drug Use History: None Reported Additional Drug Use History / Comment(s): denies current use - Past Family History Father Family Medical History: Cancer Additional Family Medical History / Comment(s): throat cancer Mother Family Medical History: Cancer Additional Family Medical History / Comment(s): lung cancer Medications and Allergies Home Medications Medication Instructions Recorded Confirmed Type No Known Home Medications 02/15/22 02/15/22 History Allergies Allergy/AdvReac Type Severity Reaction Status Date / Time cephalexin monohydrate Allergy Rash/Hives Verified 02/15/22 14:41 [From Keflex] Physical Exam Vitals: Vital Signs Temp Pulse Pulse Pulse Pulse Resp BP 02/16/22 07:00 98.1 F 72 63 66 16 02/16/22 04:30 98.0 F 46 L 15 02/16/22 02:00 16 02/15/22 20:07 98.2 F 61 16 02/15/22 17:18 66 16 157/100 02/15/22 13:43 63 16 142/89 02/15/22 11:50 98.5 F 65 16 140/85 BP BP BP BP Pulse Ox 02/16/22 07:00 119/75 109/71 138/80 97 02/16/22 04:30 145/82 96 02/16/22 02:00 02/15/22 20:07 125/74 95 02/15/22 17:18 98 02/15/22 13:43 97 02/15/22 11:50 100 Intake and Output 02/15/22 02/16/22 02/16/22 22:59 06:59 14:59 Intake Total 240 Balance 240 Intake: Oral 240 Other: # Voids 1 1 Weight 61.689 kg PHYSICAL EXAMINATION: This is a 61-year-old female in no apparent distress at the time of my examination. VITAL SIGNS: Blood pressure 138/80, heart rate 72, respirations 16, temp 98.1. Patient is 97% on room air. HEENT: Head is atraumatic, normocephalic. Pupils are equal, round. Sclerae anicteric. Conjunctivae are clear. Mucous membranes of the mouth are moist. Neck is supple. There is no elevated jugular venous pressure. No carotid bruit is heard. CHEST EXAMINATION: Clear to auscultation bilaterally. No wheezes rales or rhonchi. Respirations even and nonlabored. HEART EXAMINATION: Heart regular, positive S1 and S2. No S3. No S4. No clicks, rubs or murmurs. ABDOMEN: Soft, nontender. Bowel sounds are heard. No organomegaly noted. EXTREMITIES: 2+ peripheral pulses with no evidence of peripheral edema and no calf tenderness noted. NEUROLOGIC EXAMINATION: Patient is awake, alert and oriented x3. Results 02/15/22 12:28 02/15/22 12:28 Cardiac Enzymes 02/15/22 02/15/22 02/16/22 Range/Units 12:28 12:28 09:18 AST 40 H (14-36) U/L Troponin I <0.012 <0.012 (0.000-0.034) ng/mL CBC 02/15/22 Range/Units 12:28 WBC 4.6 (3.8-10.6) k/uL RBC 4.03 (3.80-5.40) m/uL Hgb 13.2 (11.4-16.0) gm/dL Hct 40.0 (34.0-46.0) % Plt Count 156 (150-450) k/uL Comprehensive Metabolic Panel 02/15/22 Range/Units 12:28 Sodium 135 L (137-145) mmol/L Potassium 3.9 (3.5-5.1) mmol/L Chloride 101 (98-107) mmol/L Carbon Dioxide 26 (22-30) mmol/L BUN 11 (7-17) mg/dL Creatinine 0.65 (0.52-1.04) mg/dL Glucose 107 H (74-99) mg/dL Calcium 9.4 (8.4-10.2) mg/dL AST 40 H (14-36) U/L ALT 43 H (4-34) U/L Alkaline Phosphatase 104 (38-126) U/L Total Protein 7.2 (6.3-8.2) g/dL Albumin 4.5 (3.5-5.0) g/dL Current Medications Generic Name Dose Route Start Last Admin Trade Name Freq PRN Reason Stop Dose Admin Acetaminophen 650 mg 02/15/22 16:58 02/15/22 20:53 Acetaminophen Tab 325 Mg Tab PO 650 mg Q6HR PRN Administration Mild Pain or Fever > 100.5 Heparin Sodium (Porcine) 5,000 unit 02/16/22 09:00 02/16/22 09:08 Heparin Sodium,Porcine/Pf 5,000 Unit/0.5 Ml Syringe SQ 5,000 unit Q12HR GEO Administration Ketorolac Tromethamine 15 mg 02/16/22 08:29 02/16/22 09:08 Ketorolac 15 Mg/Ml 1 Ml Vial IVP 02/19/22 08:29 15 mg Q6HR PRN Administration Moderate Pain Naloxone HCl 0.2 mg 02/15/22 16:58 Naloxone 0.4 Mg/Ml 1 Ml Vial IV Q2M PRN Opioid Reversal Naloxone HCl 0.2 mg 02/15/22 17:01 Naloxone 0.4 Mg/Ml 1 Ml Vial IV Q2M PRN Opioid Reversal Intake and Output 02/15/22 02/16/22 02/16/22 22:59 06:59 14:59 Intake Total 240 Balance 240 Intake: Oral 240 Other: # Voids 1 1 Weight 61.689 kg 02/15/22 12:28 02/15/22 12:28 EKG Interpretations (text) Sinus bradycardia Assessment and Plan Assessment: #1 recurrent syncope #2 nicotine dependence Plan: From cardiology's perspective obtain 2-D echo with Doppler to assess cardiac structure and function. There has been no episodes of symptomatic bradycardia but patient may benefit from an event monitor as an outpatient. We will eugene nue to follow the patient and provide further recommendations accordingly. CERTIFIED PHYSICIAN ASSISTANT note has been reviewed, I agree with a documented findings and plan of care. Patient was seen and examined.
--- NOTE | 2022-02-16 12:33 | P.CNNES ---
History of Present Illness Consult date: 02/16/22 History of Present Illness: The patient is a 61-year-old female who is seen in neurologic consultation on February 16, 2022, via teleneurology. The patient reports that she haspassed out 3 times in the past 1-1/2 months. She says that she gets no warning. She does not feel lightheaded. She has no chest pain or shortness of breath. She says the first episode happened approximately one and a half months ago, at which time she was standing in the kitchen. She says that she had no warning and woke up on the floor. She says that she was confused only in that she did not know what had happened. She knew where she was. She was able to speak. The second 2 episodes occurred 2 nights ago. Patient was reportedly seated on the commode, urinating. She says that she passed out for a short period of time. Her boyfriend attempted to help her up and she passed out again. With the second episode of syncope, the patient hit her head and also fell into the counter, in the bathroom. The patient denies tongue biting and loss of bowel and bladder control. She denies postictal sleepiness and confusion. The patient denies recent medication changes. She does report that she had been taking Valium for anxiety. She has been without the Valium for the past 1-1/2 months. The patient denies symptoms of orthostasis. She denies weakness in her extremities. She does report a numb sensation in her lower extremities. She denies a history of headaches, visual changes, difficulty with speech and difficulty swallowing. This morning, the patient does report a headache and rib pain, secondary to injury. CT scan of the brain was performed in the emergency department. There is no evidence of acute hemorrhage or infarct. CT scan of the cervical spine revealed no signs of acute fracture. Patient did have a chest x-ray revealing fractures of the left eighth and ninth ribs. Review of Systems Negative except for that noted in history of chief complaint Past Medical History Past Medical History: Musculoskeletal Disorder Additional Past Medical History / Comment(s): Raynaud's disease. Frozen Lt shoulder. History of Any Multi-Drug Resistant Organisms: None Reported Past Surgical History: Back Surgery Additional Past Surgical History / Comment(s): Cervical fusion C6-7 in 1999. Colonoscopy. Past Anesthesia/Blood Transfusion Reactions: No Reported Reaction Past Psychological History: Anxiety Additional Psychological History / Comment(s): denies depression hx Smoking Status: Current every day smoker Past Alcohol Use History: Daily Additional Past Alcohol Use History / Comment(s): Smoking since 1979, 1/2 ppd. 7-8 beers per week est Past Drug Use History: None Reported Additional Drug Use History / Comment(s): denies current use - Past Family History Father Family Medical History: Cancer Additional Family Medical History / Comment(s): throat cancer Mother Family Medical History: Cancer Additional Family Medical History / Comment(s): lung cancer Medications and Allergies Home Medications Medication Instructions Recorded Confirmed Type No Known Home Medications 02/15/22 02/15/22 History Allergies Allergy/AdvReac Type Severity Reaction Status Date / Time cephalexin monohydrate Allergy Rash/Hives Verified 02/15/22 14:41 [From Keflex] Physical Examination - Vital Signs Vital Signs: Vital Signs Temp Pulse Pulse Pulse Pulse Resp BP 02/16/22 07:00 98.1 F 72 63 66 16 02/16/22 04:30 98.0 F 46 L 15 02/16/22 02:00 16 02/15/22 20:07 98.2 F 61 16 02/15/22 17:18 66 16 157/100 02/15/22 13:43 63 16 142/89 BP BP BP BP Pulse Ox 02/16/22 07:00 119/75 109/71 138/80 97 02/16/22 04:30 145/82 96 02/16/22 02:00 02/15/22 20:07 125/74 95 02/15/22 17:18 98 02/15/22 13:43 97 Intake and Output 02/15/22 02/16/22 02/16/22 22:59 06:59 14:59 Intake Total 240 Balance 240 Intake: Oral 240 Other: # Voids 1 1 Weight 61.689 kg Gen.: The patient is reclining in the bed. She is well-nourished, well- developed and in no acute distress. HEENT: Head is atraumatic, normocephalic. Fundus not visualized. There is no scleral icterus. Mucous membranes are moist. Neck: Supple Heart: Regular rate and rhythm Extremities: Without edema Neurological examination Mental status: The patient is awake, alert and oriented 3. There is no dysarthria or aphasia. Cranial nerves: Pupils are equal at 1 mm and reactive. Visual mcallister are full to confrontation. Extraocular movements are intact. There is no nystagmus. Facial sensation is intact. There is no facial asymmetry. Hearing is grossly intact. Uvula and palate are midline. Shoulder shrug is symmetric. Tongue protrudes midline. There is no evidence of tongue bite. Motor: Strength is 5/5 throughout. Coordination: Finger to nose and heel to soriano testing are intact. Deep tendon reflexes: 2-3+/4+ throughout. Gait: Not assessed Results - Laboratory Findings CBC and BMP: 02/15/22 12:28 02/15/22 12:28 Abnormal Lab Findings: Abnormal Labs 02/15/22 02/15/22 12:28 12:45 Sodium 135 L Glucose 107 H AST 40 H ALT 43 H Creatine Kinase 27 L Urine Appearance Cloudy H Urine Protein Trace H Ur Leukocyte Esterase Small H Ur Squamous Epith Cells 13 H Urine Bacteria Rare H Urine Mucus Few H Assessment and Plan Assessment: 1. Syncope, likely secondary to orthostasis. Orthostatic vitals are positive. There is no evidence of epileptiform activity per history. Plan: 1. Agree with checking of orthostatic vitals 2. Cardiology consult is appreciated 3. 2-D echocardiogram, carotid Doppler and Holter monitor I recommended per cardiology. I agree with this Thank you for allowing us to participate in care of this patient. No further neurologic intervention is needed at this time. Neurology will sign off. Please call with questions or concerns. Time with Patient: Greater than 30 (Spent 40 minutes with patient via telemedicine)
--- NOTE | 2022-02-16 13:06 | P.GSCN ---
History of Present Illness Consult date: 02/16/22 Reason for Consult: Rib fracture History of present illness: The patient is a 61-year-old female who is been having some syncopal episodes. Yesterday she fell striking her with pain in the left ribs and neck. Because of the multiple episodes she came into the emergency department. Denies shortness of breath. Review of Systems All systems: negative Past Medical History Past Medical History: Musculoskeletal Disorder Additional Past Medical History / Comment(s): Raynaud's disease. Frozen Lt shoulder. History of Any Multi-Drug Resistant Organisms: None Reported Past Surgical History: Back Surgery Additional Past Surgical History / Comment(s): Cervical fusion C6-7 in 1999. Colonoscopy. Past Anesthesia/Blood Transfusion Reactions: No Reported Reaction Past Psychological History: Anxiety Additional Psychological History / Comment(s): denies depression hx Smoking Status: Current every day smoker Past Alcohol Use History: Daily Additional Past Alcohol Use History / Comment(s): Smoking since 1979, 1/ ppd. 7-8 beers per week est Past Drug Use History: None Reported Additional Drug Use History / Comment(s): denies current use - Past Family History Father Family Medical History: Cancer Additional Family Medical History / Comment(s): throat cancer Mother Family Medical History: Cancer Additional Family Medical History / Comment(s): lung cancer Medications and Allergies Home Medications Medication Instructions Recorded Confirmed Type No Known Home Medications 02/15/22 02/15/22 History Allergies Allergy/AdvReac Type Severity Reaction Status Date / Time cephalexin monohydrate Allergy Rash/Hives Verified 02/15/22 14:41 [From Keflex] Surgical - Exam Osteopathic Statement: *. No significant issues noted on an osteopathic structural exam other than those noted in the History and Physical/Consult. Vital Signs Temp Pulse Resp BP Pulse Ox 98.5 F 65 16 140/85 100 02/15/22 11:50 02/15/22 11:50 02/15/22 11:50 02/15/22 11:50 02/15/22 11:50 - General well developed, well nourished, no distress - Eyes normal ocular movement - Respiratory Doing poorly on incentive spirometry. Point tenderness along the left ribs normal expansion, normal respiratory effort Results - Labs 02/15/22 12:28 02/15/22 12:28 Thyroid panel 02/15/22 Range/Units 12:28 TSH 2.470 (0.465-4.680) mIU/L Pituitary panel 02/15/22 Range/Units 12:28 TSH 2.470 (0.465-4.680) mIU/L - Imaging Chest x-ray: report reviewed, image reviewed Assessment and Plan (1) Rib fracture Current Visit: Yes Status: Acute Code(s): S22.39XA - FRACTURE OF ONE RIB, UNSP SIDE, INIT FOR CLOS FX SNOMED Code(s): 68124993 (2) Syncope and collapse Current Visit: Yes Status: Acute Code(s): R55 - SYNCOPE AND COLLAPSE SNOMED Code(s): 101015235 Plan: Patient is admitted for workup due to syncopal episodes. She has a subtle ninth rib fracture with questionable eighth rib fracture. Explained the importance of incentive spirometry. Take nonsteroidal anti-inflammatory on a schedule for the next 2 weeks. Pain medication as needed. We'll follow up as needed
[2022-02-16] MEDS: NAPROXEN 250 MG TAB PO SCH (17:51)
--- NOTE | 2022-02-17 06:42 | P.PN ---
Subjective Progress Note Date: 02/17/22 Principal diagnosis: Syncope The patient is a pleasant 61-year-old female patient was admitted to the hospital with syncopal episode resulted in fractures of the ribs on the left s madelin. The patient is scheduled to undergo today and precordial. She's also in process of having an echocardiogram. She was seen this morning. She is asymptomatic. She is stable hemodynamically. We will follow-up with the patient after the report of for possible discharge home. Objective - Vital Signs Vital signs: Vital Signs Temp 98.3 F 02/17/22 02:00 Pulse 57 L 02/17/22 02:00 Resp 14 02/16/22 13:38 BP 133/75 02/17/22 02:00 Pulse Ox 97 02/17/22 02:00 FiO2 Intake & Output 02/16/22 02/16/22 02/17/22 06:59 18:59 06:59 Intake Total 840 Output Total 1 Balance 839 Intake: Oral 840 Output: Urine 1 Other: # Voids 1 1 - Constitutional General appearance: Present: no acute distress - Respiratory Respiratory: bilateral: CTA - Cardiovascular Rhythm: regular Heart sounds: normal: S1, S2 Abnormal Heart Sounds: Present: systolic murmur - Labs CBC & Chem 7: 02/15/22 12:28 02/15/22 12:28 Assessment and Plan Assessment: Assessment #1 syncopal episode #2 injury related to syncope Plan #1 the patient is in process of having recorder #2 further recommendation to follow
[2022-02-17 07:48] VITALS: BP 136/75; PULSE 52; RESP 18; TEMP 97.7
[2022-02-17 09:24] LABS: Basophils # (A) 0.02 X 10*3/uL (0.00-0.10); Basophils % (A) 0.4 %; Eosinophils # (A) 0.03 X 10*3/uL (0.04-0.35); Eosinophils % (A) 0.6 %; HCT 35.1 % (37.2-46.3); HGB 12.1 g/dL (12.0-15.0); Immature Grans, Automated 0.2 %; Lymphocytes # (A) 2.54 X 10*3/uL (0.90-5.00); Lymphocytes % (A) 53.9 %; MCH 33.3 pg (27.0-32.0); MCHC 34.5 g/dL (32.0-37.0); MCV 96.7 fL (80.0-97.0); Mean Platelet Volume 11.2 fL (9.5-12.2); Monocytes # (A) 0.49 X 10*3/uL (0.20-1.00); Monocytes % (A) 10.4 %; NRBC Per 100 WBC 0 /100 WBCS (0.0-0.0); Neutrophils # (A) 1.62 X 10*3/uL (1.80-7.70); Neutrophils % (A) 34.5 %; Platelet Count 153 X 10*3/uL (140-440); RBC 3.63 X 10*6/uL (4.10-5.20); RDW 12.5 % (11.5-14.5); WBC 4.71 X 10*3/uL (4.50-10.00)
[2022-02-17 09:42] LABS: African American GFR (CKD) 121.8 (60.0-200.0); Anion Gap 7.7 mmol/L (10.00-18.00); BUN/Creat Ratio 22.91 Ratio (12.00-20.00); Blood Urea Nitrogen 11.5 mg/dL (9.0-27.0); Calcium 9.1 mg/dL (8.7-10.3); Non-African American GFR(CKD) 105.1 (60.0-200.0); Potassium 4.1 mmol/L (3.5-5.5)
--- NOTE | 2022-02-17 11:37 | CA ---
Transthoracic Echo Report Name: Kerrie Bobby Age: 61 Gender: F : 1960 Exam Date: 02/17/2022 08:36 Exam Location: [facility] Ht (in): 68 Wt (lb): 136 Ordering Physician: Milagros Trent Attending/Referring Phys: [id number], Twan Steward/Stewardess Night Carol Mims RDCS Procedure CPT: Indications: Syncope Cardiac Hx: Technical Quality: Fair Contrast 1: Total Dose (mL): Contrast 2: Total Dose (mL): MEASUREMENTS (Male / Female) Normal Values 2D ECHO LV Diastolic Diameter PLAX 3.9 cm 4.2 - 5.9 / 3.9 - 5.3 cm LV Systolic Diameter PLAX 2.1 cm IVS Diastolic Thickness 1.0 cm 0.6 - 1.0 / 0.6 - 0.9 cm LVPW Diastolic Thickness 1.1 cm 0.6 - 1.0 / 0.6 - 0.9 cm LV Relative Wall Thickness 0.5 RV Internal Dim ED PLAX 2.7 cm LA Volume 37.6 cm??? 18 - 58 / 22 - 52 cm??? M-MODE Aortic Root Diameter MM 3.1 cm LA Systolic Diameter MM 2.9 cm LA Ao Ratio MM 0.9 AV Cusp Separation MM 2.0 cm DOPPLER AV Peak Velocity 99.6 cm/s AV Peak Gradient 4.0 mmHg LVOT Peak Velocity 91.3 cm/s LVOT Peak Gradient 3.3 mmHg MV Area PHT 3.0 cm??? Mitral E Point Velocity 79.9 cm/s Mitral A Point Velocity 79.4 cm/s Mitral E to A Ratio 1.0 MV Deceleration Time 255.3 ms MV E' Velocity 5.9 cm/s Mitral E to MV E' Ratio 13.6 FINDINGS Left Ventricle Mildly increased left ventricular wall thickness. Normal left ventricular systolic function with no obvious regional wall motion abnormalities. Left ventricular ejection fraction is estimated at 55-60 %. Right Ventricle Normal right ventricular size and function. Right ventricular systolic pressure within normal limits. Right Atrium Normal right atrial size. Left Atrium Normal left atrial size. No evidence for an atrial septal defect. Mitral Valve Structurally normal mitral valve. No mitral stenosis. Trace mitral regurgitation. Aortic Valve No aortic valve stenosis or regurgitation. Tricuspid Valve Structurally normal tricuspid valve. Mild tricuspid regurgitation. Pulmonic Valve Trace pulmonic regurgitation. Structurally normal pulmonic valve. Pericardium No pericardial effusion. Aorta Normal size aortic root and proximal ascending aorta. CONCLUSIONS Normal left ventricular dimension and systolic function Mild mitral regurgitation Previewed by: Dr. Pravin Blair MD (Electronically Signed) Final Date: 17 February 2022 11:36
[2022-02-17] MEDS: HEPARIN SODIUM,PORCINE/PF 5,000 UNIT/0.5 ML SYRINGE SQ SCH (12:56)
[2022-02-17] MEDS: NAPROXEN 250 MG TAB PO SCH (12:57)
--- NOTE | 2022-02-17 13:33 | P.DS ---
Providers Date of admission: 02/15/22 16:58 Expected date of discharge: 02/17/22 Attending physician: Nidia Brewster MD Consults: 02/15/22 16:58 Consult Physician Routine Consulting Provider: Gisele Gomez Consult Reason/Comments: Fall with left for fractures Do you want consulting provider notified?: Yes 02/15/22 17:01 Consult to Anesthesia Routine Consulting Provider: Anesthesia,Services Consult Reason/Comments: Left rib fractures 02/16/22 08:26 Consult Physician Routine Consulting Provider: Traci Clifton Consult Reason/Comments: bradycardia, syncope Do you want consulting provider notified?: Yes Consult Physician Stat Consulting Provider: Nuria Cook Consult Reason/Comments: Syncope possible seizure Do you want consulting provider notified?: Yes Primary care physician: Emre Moura MD Hospital Course: Discharge Diagnosis: Syncopal episode, possibly secondary to orthostatic hypotension. Patient to follow up outpatient with cardiology next week for loop recorder placement. Orthostatic hypotension, patient educated on importance of changing positions slowly and keeping herself hydrated. Sinus bradycardia Nondisplaced Rib fracture(s), x-ray revealed nondisplaced eighth rib fracture on left side and questionable nondisplaced ninth rib fracture on left side. Patient to follow-up outpatient with orthopedic surgery in 2 weeks. Anxiety Hospital Course: Patient is a very pleasant 61-year-old female with a past medical history of anxiety who presented to the emergency department on 02/16/22 with a chief complaint of syncopal episode. Patient reports having a total of 3 syncopal episodes over the past month with 2 syncopal episodes being the day prior to evaluation in the emergency department. Patient reports she has no warning of impending syncopal episode and denies ever experiencing any dizziness, lightheadedness, changes in vision or hearing, strange smells or auras, weakness, chest pain, palpitations, shortness of breath, or experiencing any numbness/tingling/weakness in her extremities. Patient reports each syncopal episode has been similar outcomes in which she reports waking up with no memory of the event. She denies having any involuntary loss of bowel or bladder or biting her tongue during these events. She reports that these episodes have been witnessed by her boyfriend whom denied her having any shaking of extremities, nausea, or vomiting before/tearing, or after event. Patient underwent full evaluation in the emergency department. She was found to be positive for orthostatic hypotension. CBC and BMP were unremarkable. Liver profile revealed elevated AST of 40 and ALT of 43. Troponin was negative at less than 0.012. D-dimer negative at 0.56. TSH 2.470. Lactic acid 1.0. EKG showing sinus bradycardia at [address] elevation in leads II, III, aVF, and V4, V5, and V6 which is unchanged when compared to EKG completed 12/10/21. CT head and cervical spine negative for acute process showing no acute intercranial abnormality in no acute fracture or malalignment of the cervical spine. Chest x-ray showing COPD as well as a subtle nondisplaced fracture of the left anterior ninth rib and a questionable nondisplaced fracture of the left anterior eighth rib. Urinalysis contaminated specimen. Patient was admitted under our services with consultation to cardiology, neurology, and orthopedic specialists. Orthopedic specialists recommending patient continue with incentive spirometry as discussed as well as continue with pain management with NSAIDs and follow-up in office in 2 weeks. Neurology recommending echocardiogram and evaluation for loop recorder placement with no further neurological interventions at this time. Echocardiogram revealing normal EF of 55-60% with mild mitral regurgitation. Orthopedic vitals were positive for orthostatic hypotension. Patient educated on importance of changing positions slowly. Cardiology recommending patient follow-up outpatient in their office next week for placement of loop recorder. Patient is medically stable for discharge at this time and free from any complaints or concerns. Patient instructed she will need to follow up outpatient with PCP in 2-3 days, cardiology in 1 week, and orthopedic surgery in 2 weeks. No new medications started on this visit. Patient medically stable for discharge home. Physical examination: Patient seen and examined at bedside. Vital signs reviewed and stable. General: Nontoxic, no distress and appears stated age. Derm: Skin warm and dry, normal coloration for ethnicity. Head: Atraumatic, normocephalic and symmetric. Eyes: EOMs intact, no lid lag, and anicteric sclera Mouth: no lip lesions, mucus membranes moist Cardiovascular: regular rate and rhythm with normal S1S2, no murmur, positive posterior tibial pulses bilaterally, and cap refill < 2 seconds. Lungs: Respirations even, regular, and unlabored on room air. Lungs CTA bilaterally, no rhonchi, no rales, no wheezing, and no accessory muscle usage. Abdominal: soft, nontender to palpation, no guarding, no appreciable organomegaly Ext: ROM intact. No gross muscle atrophy, no edema, no contractures Neuro: Speech clear, face symmetrical and CN II-XII grossly intact with no noted focal neuro deficits Psych: Alert and oriented to person, place, time, and situation. Appropriate and pleasant affect. A total of 38 minutes of time were spent preparing this complex discharge summary. Pt was discharged on 02/17/22 at 1:36 PM I reviewed the documentation as provided by the BRIANNA above, who is the original author of this note. I agree with the documented assessment and plan, with the following changes: none Patient Condition at Discharge: Stable Plan - Discharge Summary Discharge Rx Participant: No New Discharge Prescriptions: No Action No Known Home Medications Discharge Medication List No Known Home Medications 02/15/22 [History] Follow up Appointment(s)/Referral(s): Gisele Gomez DO [Doctor of Osteopathic Medicine] - 2 Weeks Pravin Blair MD [STAFF PHYSICIAN] - 1 Week (Office will call with appointment time and date ) Edu Alejandra DO [Doctor of Osteopathic Medicine] - 3 Days Patient Instructions/Handouts: Syncope (DC) Activity/Diet/Wound Care/Special Instructions: Activity: As tolerated. Take breaks as needed. Remember to change positions slowly from lying to sitting, sitting to standing, and upon standing before walking. Diet: Keep yourself hydrated and maintain a Heart healthy and carb consistent diet. Avoid salts, or foods with hidden salts such as canned or boxed foods and frozen dinners. Extra salt makes your heart work harder and traps the fluid in your body for longer. Special Instructions: Please remember to keep all of your doctor's appointments and follow-up as needed. 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 Thank you for allowing us to participate in your care, it was truly a pleasure having you for our patient!!! Discharge Disposition: HOME SELF-CARE
--- NOTE | 2022-02-17 16:12 | P.PAINPG ---
Objective - Vital Signs Vital signs: Vital Signs Temp 97.7 F 02/17/22 07:00 Pulse 52 L 02/17/22 07:00 Resp 18 02/17/22 07:00 BP 136/75 02/17/22 07:00 Pulse Ox 97 02/17/22 07:00 FiO2 Intake & Output 02/16/22 02/17/22 02/17/22 18:59 06:59 18:59 Intake Total 840 Output Total 1 Balance 839 Intake: Oral 840 Output: Urine 1 Other: # Voids 1 - Labs CBC & Chem 7: 02/17/22 03:48 02/17/22 03:48 Labs: Abnormal Lab Results - Last 24 Hours (Table) 02/17/22 02/17/22 Range/Units 03:48 03:48 RBC 3.63 L (4.10-5.20) X 10*6/uL Hct 35.1 L (37.2-46.3) % MCH 33.3 H (27.0-32.0) pg Neutrophils # 1.62 L (1.80-7.70) X 10*3/uL Eosinophils # 0.03 L (0.04-0.35) X 10*3/uL Anion Gap 7.70 L (10.00-18.00) mmol/L Creatinine 0.5 L (0.6-1.5) mg/dL BUN/Creatinine Ratio 22.91 H (12.00-20.00) Ratio PQRS Measure Charge Sheet Comment: HISTORY OF PRESENT ILLNESS: 61 yr old inpatient female admitted s/p syncopal episode presents today with severe and chronic left sided chest and flank pain secondary to L 8th and possible L 9th rib fracture status post fall for an evaluation. Patient states her pain level is 8 out of 10 in intensity, constant, sharp, stabbing sensation localized in the L lateral thoracic region with pain provoked with any type of movement, including breathing. Pain is relieved with medications, applying pressure, repositioning and rest. Imaging of CXR and CT Head from 02/15/22 reviewed with pt. PMH: Raynaud's disease, Anxiety PSH: L Frozen Shoulder. C6-C7 Fusion (1999), Colonoscopy, L 8th Rib Fx. SH: 22 pack/ yr tobacco user, Daily ETOH use, No illicit drug use FH: Fa- Esophageal CA. Mo- Lung CA. All: See list Meds: See list REVIEW OF ORGAN SYSTEMS: CONSTITUTIONAL: No fevers or chills. No recent weight loss. NEUROLOGICAL: + numbness and tingling along the distal extremities. No seizure disorders or headaches. MUSCULOSKELETAL: + pain PSYCHIATRIC: Denies current depression or suicidal thoughts. Physical Examinations : Constitutional : Cooperative , not in acute distress . Neurologic : Cranial nerve II to XII intact. No focal neurological deficits. Psychiatric : alert & oriented x 3. Matching mood & appropriate affect. Judgment & insight intact. Musculoskeletal : Cervical Spine Motor strength in the deltoid and biceps: Normal right side. Normal Left side Motor strength biceps and the wrist extensors: Normal right side . Normal left side Motor strength in the triceps muscle: Normal right side. Normal left side Deep tendon reflexes: Normal at the biceps. Normal at Brachioradialis. Normal at triceps Vertebral body tenderness to deep palpation over Cervical facet loading test: positive bilaterally Spurling test: positive bilaterally Neck distraction test: positive bilaterally Park sign: positive bilaterally Thoracic spine No ecchymosis, lacerations or petechiae. +TTP over L 6th - 10th mid axillary line Lumbar spine Motor strength lower extremities ,thigh and legs 5/5 Right side , 5/5 Left side Deep tendon reflexes : Normal Knee Jerk. Normal Ankle Jerk Vertebral body tenderness over Lumbar facet Loading Test: positive Right / positive Left Range of motion of the lumbar spine Flexion 30 degrees, extension 10 degrees Straight Leg Raise test: Left/ Right positive at degree Alyssa test: positive right / positive left. Severe tenderness over the Sacroiliac joint on the Right / Left sides Gaenslen test: positive bilaterally Seated flexion test: positive bilaterally. Sacral spine : Severe tenderness over the Sacroiliac joint: right side / left side Range of motion: Flexion of the lumbar spine <60 degrees Range of motion: Extension of the lumbar spine <20 degrees Gaenslen's Test positive Matthew's Test positive Alyssa test: positive right side / left side Thigh Thrust Test Sacral Thrust Test Assessment/ Plan : L 8th Rib Fx and possible hairline fx of L 9th rib Recommendation of L thoracic intercostal nerve block. May need a series of injections for optimal pain relief. Risks, benefits of procedure discussed and patient verbalized understanding. Denies aspirin or anti- coagulant use or medical history of diabetes. Protocol for discontinuation/ continuation of medications juan procedure discussed. All questions answered. I have spent greater than 30 minutes on patient care today. Dr Toro was available by phone for the evaluation of this patient. The time was used to review the medical records including relevant urine studies and Prescription hi story (MAPs), review of the available imaging, evaluation and examination of the patient, coordination of care with the medical staff and if applicable referring physicians, as well as creation of the medical record - Pain Location Left Abdomen Non-Pharmacological Interventions: Darkened Room Pharmacological Interventions: PRN Medication Pain Comment: See MAR for pain assessment PQRS Narrative: Smoking Status Current every day smoker Do You Want the Pneumonia No Vaccine AT THIS TIME? Blood Pressure [Standing] 109/71 Blood Pressure [Sitting] 133/75 Blood Pressure [Supine] 112/67 Blood Pressure [Right Arm] 136/75 Blood Pressure 157/100 Pain Intensity [Left Abdomen] 0 Pain Intensity 2 Pain Scale Used Numeric (1 - 10) Scale Used Numeric (1 - 10) Home Medications: Ambulatory Orders No Known Home Medications 02/15/22 Controlled Substance Measures - Controlled Substance Measures Is patient prescribed a controlled substance at discharge?: No
== END 2022-02-17 14:41 | disposition home or self-care (01) ==
LOC: EC 11:35 → 6NMEDSUR 16:58
PROVIDERS: ADMIT Internal Medicine; ATTEND Internal Medicine
DX: R55 Syncope and collapse (principal); S22.32XA Fracture of one rib, left side, initial encounter for closed fracture; S16.1XXA Strain of muscle, fascia and tendon at neck level, initial encounter; S00.83XA Contusion of other part of head, initial encounter; I95.1 Orthostatic hypotension; R00.1 Bradycardia, unspecified; F10.10 Alcohol abuse, uncomplicated; I73.00 Raynaud's syndrome without gangrene; F41.9 Anxiety disorder, unspecified; J44.9 Chronic obstructive pulmonary disease, unspecified; I08.1 Rheumatic disorders of both mitral and tricuspid valves; J34.2 Deviated nasal septum; M48.02 Spinal stenosis, cervical region; I37.1 Nonrheumatic pulmonary valve insufficiency; M25.78 Osteophyte, vertebrae; F17.200 Nicotine dependence, unspecified, uncomplicated; Z98.1 Arthrodesis status; Z80.8 Family history of malignant neoplasm of other organs or systems; Z80.1 Family history of malignant neoplasm of trachea, bronchus and lung; W18.39XA Other fall on same level, initial encounter; Y92.002 Bathroom of unspecified non-institutional (private) residence as the place of occurrence of the external cause; Y90.0 Blood alcohol level of less than 20 mg/100 ml
CPT/HCPCS: 96376; 96361 ×3; 96372; 96374; 99285; 36415; 93005; 93306; 97162; 97166; 85379; 80053; 80048; 84443; 82550; 83605; 83735; 84484 ×2; 85025 ×2; 81001; 71101; 72125; 70450; G0378 ×3; G0480; J1885 ×2; Q9950; J1644; 80320

== ENCOUNTER 2022-08-01 20:09 | Emergency (ER) | payer OTHER ==
[2022-08-01 20:33] VITALS: RESP 16
[2022-08-01 20:43] LABS: Glucose,Whole Blood 106 mg/dL (70-110)
[2022-08-01 21:03] LABS: Basophils % (A) 1 %; Eosinophils # (A) 0.1 k/uL (0-0.7); Eosinophils % (A) 1 %; HCT 40.6 % (34.0-46.0); Lymphocytes # (A) 2.5 k/uL (1.0-4.8); Lymphocytes % (A) 48 %; MCH 32.2 pg (25.0-35.0); MCHC 34.4 g/dL (31.0-37.0); MCV 93.5 fL (80.0-100.0); Mean Platelet Volume 9.2; Monocytes # (A) 0.3 k/uL (0-1.0); Monocytes % (A) 6 %; Neutrophils # (A) 2.2 k/uL (1.3-7.7); Neutrophils % (A) 42 %; RBC 4.34 m/uL (3.80-5.40); RDW 12.5 % (11.5-15.5); WBC 5.2 k/uL (3.8-10.6)
--- NOTE | 2022-08-01 21:09 | ED ---
General Adult HPI - General Source: patient, EMS Mode of arrival: EMS Limitations: altered mental status - History of Present Illness -: hour(s) Severity scale (1-10): 0 Consistency: now resolved Improves with: none Worsens with: none Associated Symptoms: confusion Treatments Prior to Arrival: none <Vin Mims - Last Filed: 08/01/22 22:05> <Gautam Holland - Last Filed: 08/02/22 05:49> - General Chief complaint: Alcohol Stated complaint: ETOH Time Seen by Provider: 08/01/22 20:24 - History of Present Illness Initial comments: This patient is a 62-year-old woman brought by ambulance to have evaluation for altered now status. The patient states that she did not know who she was or who her daughter was for a period of time this evening. Patient states that she does feel better now. Patient denies any other symptoms then having confusion earlier. She denies pain, dyspnea, weakness, fever or chills, cough, urinary or bowel changes. Patient denies use of drugs and/or alcohol. States she has never had dropped to drink in her life. (Vin Mims) - Related Data Home Medications Medication Instructions Recorded Confirmed Acetaminophen Tab [Tylenol] 650 mg PO Q4H 02/18/22 02/20/22 Naproxen Sodium [Aleve] 220 mg PO DAILY 02/18/22 02/18/22 Allergies Allergy/AdvReac Type Severity Reaction Status Date / Time cephalexin monohydrate Allergy Rash/Hives Verified 02/20/22 10:38 [From Keflex] Review of Systems ROS Other: All systems not noted in ROS Statement are negative. Constitutional: Denies: fever, chills Eyes: Denies: vision change Respiratory: Denies: cough, dyspnea Cardiovascular: Denies: chest pain, syncope Gastrointestinal: Denies: abdominal pain, vomiting, diarrhea Genitourinary: Denies: dysuria Skin: Denies: rash Neurological: Reports: as per HPI, confusion. Denies: headache, weakness, numbness <Vin Mims - Last Filed: 08/01/22 22:05> ROS Other: All systems not noted in ROS Statement are negative. <Gautam Holland - Last Filed: 08/02/22 05:49> ROS Statement: Those systems with pertinent positive or pertinent negative responses have been documented in the HPI. Past Medical History Past Medical History: Deep Vein Thrombosis (DVT), Syncope Additional Past Medical History / Comment(s): Raynaud's disease. Frozen Lt shoulder. "PASSED OUT" FELL AND FRACTURED RIBS AND HEAD INJURY IN FEB 2022, DVT LEG, History of Any Multi-Drug Resistant Organisms: MRSA Date of last positivie culture/infection: 2015 MDRO Source:: NOSE Past Surgical History: Back Surgery, Orthopedic Surgery Additional Past Surgical History / Comment(s): Cervical fusion C6-7 in 1999. Colonoscopy. ARTHROSCOPIC LEFT KNEE X2, Past Anesthesia/Blood Transfusion Reactions: No Reported Reaction Past Psychological History: Anxiety Smoking Status: Current every day smoker - Past Family History Father Family Medical History: Cancer Additional Family Medical History / Comment(s): throat cancer Mother Family Medical History: Cancer Additional Family Medical History / Comment(s): lung cancer <Vin Mims Last Filed: 08/01/22 22:05> General Exam Limitations: altered mental status General appearance: alert, in no apparent distress, appears intoxicated Head exam: Present: atraumatic, normocephalic Eye exam: Present: normal appearance. Absent: scleral icterus, conjunctival injection ENT exam: Present: mucous membranes dry Neck exam: Present: normal inspection, full ROM. Absent: tenderness Respiratory exam: Present: normal lung sounds bilaterally. Absent: respiratory distress, wheezes, rales, rhonchi, stridor, chest wall tenderness Cardiovascular Exam: Present: regular rate, normal rhythm, normal heart sounds. Absent: systolic murmur, diastolic murmur, rubs, gallop GI/Abdominal exam: Present: soft. Absent: distended, tenderness, guarding, rebound, rigid Extremities exam: Present: normal inspection Back exam: Present: normal inspection. Absent: CVA tenderness (R), CVA tenderness (L) Neurological exam: Present: alert Skin exam: Present: warm, dry, intact, normal color. Absent: rash <Vin Mims - Last Filed: 08/01/22 22:05> Course Vital Signs 08/01/22 20:16 Pulse Rate 76 Respiratory 16 Rate Blood Pressure 100/63 O2 Sat by Pulse 92 L Oximetry Medical Decision Making - Lab Data Result diagrams: 08/01/22 20:37 08/01/22 20:37 <Vin Mims - Last Filed: 08/01/22 22:05> - Lab Data Result diagrams: 08/01/22 20:37 08/01/22 20:37 <Gautam Holland - Last Filed: 08/02/22 05:49> - Medical Decision Making Patient is a 62-year-old woman here for altered mental status but she states that the symptoms have resolved. On arrival, the patient is alert. She is oriented to person place and does note the date. The patient's labs do show alcohol intoxication and the drug screen positive for cocaine. (Vin Mims) - Lab Data Lab Results 08/01/22 08/01/22 08/01/22 Range/Units 20:37 20:37 20:41 WBC 5.2 (3.8-10.6) k/uL RBC 4.34 (3.80-5.40) m/uL Hgb 14.0 (11.4-16.0) gm/dL Hct 40.6 (34.0-46.0) % MCV 93.5 (80.0-100.0) fL MCH 32.2 (25.0-35.0) pg MCHC 34.4 (31.0-37.0) g/dL RDW 12.5 (11.5-15.5) % Plt Count 85 L (150-450) k/uL MPV 9.2 Neutrophils % 42 % Lymphocytes % 48 % Monocytes % 6 % Eosinophils % 1 % Basophils % 1 % Neutrophils # 2.2 (1.3-7.7) k/uL Lymphocytes # 2.5 (1.0-4.8) k/uL Monocytes # 0.3 (0-1.0) k/uL Eosinophils # 0.1 (0-0.7) k/uL Basophils # 0.0 (0-0.2) k/uL Sodium 138 (137-145) mmol/L Potassium 4.0 (3.5-5.1) mmol/L Chloride 105 (98-107) mmol/L Carbon Dioxide 21 L (22-30) mmol/L Anion Gap 12 mmol/L BUN 8 (7-17) mg/dL Creatinine 0.50 L (0.52-1.04) mg/dL Est GFR (CKD-EPI)AfAm >90 (>60 ml/min/1.73 sqM) Est GFR (CKD-EPI)NonAf >90 (>60 ml/min/1.73 sqM) Glucose 91 (74-99) mg/dL POC Glucose (mg/dL) 106 (70-110) mg/dL POC Glu [employer] Manager ID Tammy Gonzalez Calcium 9.1 (8.4-10.2) mg/dL Total Bilirubin 0.3 (0.2-1.3) mg/dL AST 32 (14-36) U/L ALT 39 H (4-34) U/L Alkaline Phosphatase 108 (38-126) U/L Total Protein 7.7 (6.3-8.2) g/dL Albumin 4.7 (3.5-5.0) g/dL TSH 2.200 (0.465-4.680) mIU/L Urine Color Urine Appearance (Clear) Urine pH (5.0-8.0) Ur Specific [place] (1.001-1.035) Urine Protein (Negative) Urine Glucose (UA) (Negative) Urine Ketones (Negative) Urine Blood (Negative) Urine Nitrite (Negative) Urine Bilirubin (Negative) Urine Urobilinogen (<2.0) mg/dL Ur Leukocyte Esterase (Negative) Urine Opiates Screen (NotDetected) Ur Oxycodone Screen (NotDetected) Urine Methadone Screen (NotDetected) Ur Propoxyphene Screen (NotDetected) Ur Barbiturates Screen (NotDetected) U Tricyclic Antidepress (NotDetected) Ur Phencyclidine Scrn (NotDetected) Ur Amphetamines Screen (NotDetected) U Methamphetamines Scrn (NotDetected) U Benzodiazepines Scrn (NotDetected) Urine Cocaine Screen (NotDetected) U Marijuana (THC) Screen (NotDetected) Serum Alcohol 167 mg/dL 08/01/22 Range/Units 20:55 WBC (3.8-10.6) k/uL RBC (3.80-5.40) m/uL Hgb (11.4-16.0) gm/dL Hct (34.0-46.0) % MCV (80.0-100.0) fL MCH (25.0-35.0) pg MCHC (31.0-37.0) g/dL RDW (11.5-15.5) % Plt Count (150-450) k/uL MPV Neutrophils % % Lymphocytes % % Monocytes % % Eosinophils % % Basophils % % Neutrophils # (1.3-7.7) k/uL Lymphocytes # (1.0-4.8) k/uL Monocytes # (0-1.0) k/uL Eosinophils # (0-0.7) k/uL Basophils # (0-0.2) k/uL Sodium (137-145) mmol/L Potassium (3.5-5.1) mmol/L Chloride (98-107) mmol/L Carbon Dioxide (22-30) mmol/L Anion Gap mmol/L BUN (7-17) mg/dL Creatinine (0.52-1.04) mg/dL Est GFR (CKD-EPI)AfAm (>60 ml/min/1.73 sqM) Est GFR (CKD-EPI)NonAf (>60 ml/min/1.73 sqM) Glucose (74-99) mg/dL POC Glucose (mg/dL) (70-110) mg/dL POC Glu [employer] Manager ID Calcium (8.4-10.2) mg/dL Total Bilirubin (0.2-1.3) mg/dL AST (14-36) U/L ALT (4-34) U/L Alkaline Phosphatase (38-126) U/L Total Protein (6.3-8.2) g/dL Albumin (3.5-5.0) g/dL TSH (0.465-4.680) mIU/L Urine Color Colorless Urine Appearance Clear (Clear) Urine pH 5.5 (5.0-8.0) Ur Specific [place] 1.002 (1.001-1.035) Urine Protein Negative (Negative) Urine Glucose (UA) Negative (Negative) Urine Ketones Negative (Negative) Urine Blood Negative (Negative) Urine Nitrite Negative (Negative) Urine Bilirubin Negative (Negative) Urine Urobilinogen <2.0 (<2.0) mg/dL Ur Leukocyte Esterase Negative (Negative) Urine Opiates Screen Not Detected (NotDetected) Ur Oxycodone Screen Not Detected (NotDetected) Urine Methadone Screen Not Detected (NotDetected) Ur Propoxyphene Screen Not Detected (NotDetected) Ur Barbiturates Screen Not Detected (NotDetected) U Tricyclic Antidepress Not Detected (NotDetected) Ur Phencyclidine Scrn Not Detected (NotDetected) Ur Amphetamines Screen Not Detected (NotDetected) U Methamphetamines Scrn Not Detected (NotDetected) U Benzodiazepines Scrn Not Detected (NotDetected) Urine Cocaine Screen Detected H (NotDetected) U Marijuana (THC) Screen Not Detected (NotDetected) Serum Alcohol mg/dL Disposition <Vin Mims - Last Filed: 08/01/22 22:05> Is patient prescribed a controlled substance at d/c from ED?: No Time of Disposition: 05:50 <Gautam Holland - Last Filed: 08/02/22 05:49> Clinical Impression: Alcoholic intoxication, Cocaine abuse Disposition: HOME SELF-CARE Condition: Fair Instructions (If sedation given, give patient instructions): Alcohol Intoxication (ED) Referrals: Victor Hugo Benson MD [Primary Care Provider] - 1-2 days
[2022-08-01 21:14] LABS: Appearance,Urine Clear (Clear); Bilirubin,Urine Negative (Negative); Blood,Urine Negative (Negative); Color,Urine Colorless; Glucose,Urine (UA) Negative (Negative); Ketones,Urine Negative (Negative); Leukocyte Esterase,Urine Negative (Negative); Nitrite,Urine Negative (Negative); PH, Urine 5.5 (5.0-8.0); Protein,Urine Negative (Negative); Specific Gravity,Urine 1.002 (1.001-1.035); Urobilinogen,Urine <2.0 mg/dL (<2.0)
[2022-08-01 21:18] LABS: Platelet Count 85 k/uL (150-450)
[2022-08-01 21:22] LABS: ALT 39 U/L (4-34); AST 32 U/L (14-36); African American GFR (CKD) >90 (>60 ml/min/1.73 sqM); Albumin 4.7 g/dL (3.5-5.0); Alkaline Phosphatase 108 U/L (38-126); Anion Gap 12 mmol/L; Blood Urea Nitrogen 8 mg/dL (7-17); Calcium 9.1 mg/dL (8.4-10.2); Carbon Dioxide 21 mmol/L (22-30); Chloride 105 mmol/L (98-107); Glucose 91 mg/dL (74-99); Non-African American GFR(CKD) >90 (>60 ml/min/1.73 sqM); Sodium 138 mmol/L (137-145); Total Bilirubin 0.3 mg/dL (0.2-1.3); Total Protein 7.7 g/dL (6.3-8.2)
[2022-08-01 21:40] LABS: Alcohol 167 mg/dL
[2022-08-01 21:51] LABS: Amphetamine Screen,Urine Not Detected (NotDetected); Barbiturate Screen,Urine Not Detected (NotDetected); Benzodiazepines Screen,Urine Not Detected (NotDetected); Cocaine Screen,Urine Detected (NotDetected); Methadone Screen, Urine Not Detected (NotDetected); Opiate Screen,Urine Not Detected (NotDetected); Oxycodone Screen, Urine Not Detected (NotDetected); Phencyclidine Screen,Urine Not Detected (NotDetected); Tricyclic Antidepressant,Urine Not Detected (NotDetected); Urn Cannabinoid Scrn Not Detected (NotDetected)
[2022-08-02 06:26] VITALS: BP 112/70; PULSE 80
== END 2022-08-02 06:14 | disposition home or self-care (01) ==
LOC: EC 20:09
DX: F10.129 Alcohol abuse with intoxication, unspecified (principal); F14.10 Cocaine abuse, uncomplicated; F41.9 Anxiety disorder, unspecified; F17.200 Nicotine dependence, unspecified, uncomplicated; Z88.1 Allergy status to other antibiotic agents
CPT/HCPCS: 36415; 80053; 80306; 80320; 81003; 82075; 84443; 85025; 99284

== ENCOUNTER → 2022-11-06 | Outpatient (CLI) | payer OTHER ==
--- NOTE | 2022-11-06 12:25 | CTL ---
EXAMINATION TYPE: CT Low Dose Lung DATE OF EXAM: 11/06/2022 11:41 AM CLINICAL INDICATION:Female, 62 years old with history of Z87.891; personal tobacco use , history of t obacco use. COMPARISON: None. TECHNIQUE: Multiple axial non-contrast scans were obtained from approximately the lung apices through the upper abdomen. Coronal and sagittal reformatted images were obtained. Low dose technique was uti lized. CT DLP: 65.1 mGycm, Automated exposure control for dose reduction was used. CT Contrast: Contrast used: None Oral contrast used: None FINDINGS: ======== Lack of intravenous contrast and low dose technique limits the evaluation of the vascular and soft ti ssue structures. LUNGS: No evidence of pulmonary fibrosis. No evidence of focal consolidation, pneumothorax or pleural effusion. Nodules: RUL: None. RML: 2 mm pulmonary nodule series 5 image 28. RLL: None. SARA: None. LLL: 3 mm pulmonary nodule series 5 image 35 AIRWAY: Patent and unremarkable. HEART: Size within normal limits. MEDIASTINUM: No gross evidence of adenopathy. VASCULATURE: No aortic aneurysm. Scattered atherosclerosis of the arterial vasculature. MUSCULOSKELETAL: No acute osseous abnormalities SOFT TISSUES/LYMPH NODES: Loop recorder on the left subcutaneous tissues is present. LOWER NECK: No significant findings. UPPER ABDOMEN: No significant findings. IMPRESSION: No clinically significant pulmonary nodules. CT LUNG RAD AND CT CHEST RECOMMENDATION: Lung-Rad 1 Negative: Continue annual screening with LDCT in 12 months. S Modifier (other clinically significant findings): None Recommend smoking cessation (if current smoker), or continuation of smoking cessation (if prior smoke r). Annual screening for lung cancer with low-dose computed tomography is recommended in adults ages 55 to 77 years who have a 30 pack-year smoking history and currently smoke or have quit within the pa st 15 years. Screening should be discontinued once a person has not smoked for 15 years or develops a health problem that substantially limits life expectancy or the ability or willingness to have curat domi lung surgery. Lung rads 2021 [email or web address]
== END | disposition home or self-care (01) ==
LOC: RADCTMAIN 11:17
PROVIDERS: ATTEND Family Medicine
DX: Z12.2 Encounter for screening for malignant neoplasm of respiratory organs (principal); F17.210 Nicotine dependence, cigarettes, uncomplicated
CPT/HCPCS: 71271

== ENCOUNTER → 2023-12-15 | Outpatient (CLI) | payer OTHER ==
--- NOTE | 2023-12-15 09:41 | CTL ---
EXAMINATION TYPE: CT Low Dose Lung DATE OF EXAM ORDERED: 12/15/2023 COMPARISON: 11/06/2022 HISTORY: . Low Dose CT Lung Screening CT DLP: 87.[address] CTDI: 2.4 mGy IV CONTRAST USED: None. SCREENING VISIT: First visit COMPARISON: None. TECHNIQUE: Low dose computed tomography scan was performed through the chest at 1 millimeter thick se ctions and reconstructed images in the coronal plane at [address] DIAGNOSTIC QUALITY: Satisfactory FINDINGS: LUNG NODULES: Not presentLeft lung: no nodules identified.Right lung: no nodules identified. LUNGS: COPD: Severity: None Fibrosis: Severity:None Lymph nodes: None Other findings: None RIGHT PLEURAL SPACE: Effusion: None Calcification: None Thickening: None Pneumothorax: None LEFT PLEURAL SPACE: Effusion: None Calcification: None Thickening: None Pneumothorax: None HEART: Heart Size: Mildly enlarged Coronary calcification: Mild Pericardial effusion: None OTHER FINDINGS: Upper abdomen: No significant abnormality Bony thorax: Degenerative changes Supraclavicular region: No significant abnormalityOther: No significant abnormalityI IMPRESSION: No clinically significant pulmonary nodules identified. FOLLOW UP CT CHEST RECOMMENDATION: Follow-up screening in one year CT LUNG RAD: LUNG RAD CATEGORY 1 negative
== END | disposition home or self-care (01) ==
LOC: RADCTMAIN 08:46
PROVIDERS: ATTEND Family Medicine
DX: Z12.2 Encounter for screening for malignant neoplasm of respiratory organs (principal); F17.210 Nicotine dependence, cigarettes, uncomplicated
CPT/HCPCS: 71271

== ENCOUNTER → 2024-12-20 | Outpatient (CLI) | payer OTHER ==
--- NOTE | 2024-12-22 09:46 | CTL ---
EXAMINATION TYPE: CT Low Dose Lung DATE OF EXAM: 12/20/2024 9:41 AM COMPARISON: 12/15/2023 SCREENING VISIT: Self CT DIAGNOSTIC QUALITY: Satisfactory CLINICAL INDICATION: Female, 64 years old with history of Z12.2 ENCNTR SCREEN FOR MALIGNANT NEOPLASM OF RESP, lung CA screening, Lung cancer screening, History of tobacco use. TECHNIQUE: Low dose computed tomography scan was performed through the chest at 1 mm thick sections a nd reconstructed images in the coronal plane at 1 mm thick sections. Contrast used: mL of , (none if empty) Oral contrast used: (none if empty) CT DLP: 87.5 mGycm, Automated exposure control for dose reduction was used. CT CTDI: 2.3 mGy, Automated exposure control for dose reduction was used. FINDINGS: LUNG NODULES: Present, detailed below: 1. There is a 0.4 cm pleural-based density posterior medial right upper lung field. Series 4 image 10 4. Present previously. LUNGS: COPD: Severity: None Fibrosis: Severity: None Lymph nodes: None Other findings: None RIGHT PLEURAL SPACE: Effusion: None Calcification: None Thickening: None Pneumothorax: None LEFT PLEURAL SPACE: Effusion: None Calcification: None Thickening: None Pneumothorax: None HEART: Other: Ascending thoracic aorta at the level the main pulmonary artery measures 3.0 cm. The main pul monary artery at the bifurcation measures 2.6 cm. Heart Size: Normal Coronary calcification: Mild coronary artery calcifications present. Pericardial effusion: None OTHER FINDINGS: Upper abdomen: Normal Bony thorax: Normal Supraclavicular region: Normal IMPRESSION: 1. No suspicious changes to suggest primary or metastatic neoplasm. FOLLOW UP CT CHEST RECOMMENDATION: Follow-up low-dose CT chest one year CT LUNG RAD: Lung-Rad 2 Benign Appearance or Behavior [facility], , 12/22/2024 9:44 AM
== END | disposition home or self-care (01) ==
LOC: RADCTMAIN 09:22
PROVIDERS: ATTEND Family Medicine
DX: Z12.2 Encounter for screening for malignant neoplasm of respiratory organs (principal); F17.210 Nicotine dependence, cigarettes, uncomplicated
CPT/HCPCS: 71271

== ENCOUNTER → 2025-01-13 | Outpatient (CLI) | payer OTHER ==
--- NOTE | 2025-01-13 12:59 | MM ---
Reason for Exam: Screening (asymptomatic). Last screening mammogram was performed 12 month(s) ago. Patient History: Menarche at age 18. First Full-Term at age 27. Postmenopausal. Risk Values: Viviana 5 year model risk: 1.6%. NCI Lifetime model risk: 6.8%. Prior Study Comparison: 08/21/2006 Bilateral Diagnostic Mammogram, [facility]. 02/09/2013 Bilateral Screening Mammogram, [facility]. 02/21/2013 Right Diagnostic Mammogram, [facility]. 12/01/2023 Bilateral Screening Mammogram, [facility]. 01/27/2024 Left Diagnostic Mammogram, [facility]. Tissue Density: There are scattered areas of fibroglandular density. Findings: Analyzed By CAD. A loop recorder in the left breast is redemonstrated. There is 9 mm focal asymmetry in the right breast centrally middle depth on MLO view may correspond to central lesion on CC or outer lesion on CC view. Overall Assessment: Incomplete: need additional imaging evaluation, BI-RAD 0 Management: Diagnostic Mammogram of the right breast. Diagnostic Breast Ultrasound of the right breast. Spot preferred 3-D images right breast and 3-D true lateral view. Possible targeted ultrasound based on additional views. Patient should continue monthly self-breast exams. A clinical breast exam by your physician is recommended on an annual basis. This exam should not preclude additional follow-up of suspicious palpable abnormalities. Note on Viviana scores and lifetime risk: 1. A Viviana score greater than 3% is considered moderate risk. If this is the case, consider specialist referral to assess eligibility for a risk reducing agent. 2. If overall lifetime risk for the development of breast cancer is 20% or higher, the patient may qualify for future screening with alternating mammogram and breast MRI. [facility], , 01/13/2025 12:56 PM. Electronically signed and approved by: Jad Gonzales M.D.
== END | disposition home or self-care (01) ==
LOC: RADMAMWWP 08:34
PROVIDERS: ATTEND Family Medicine
DX: Z12.31 Encounter for screening mammogram for malignant neoplasm of breast (principal); R92.323 Mammographic fibroglandular density, bilateral breasts; Z78.0 Asymptomatic menopausal state
CPT/HCPCS: 77067

== ENCOUNTER → 2025-01-19 | Outpatient (CLI) | payer OTHER ==
--- NOTE | 2025-01-19 15:44 | MM ---
Reason for Exam: Additional evaluation requested from abnormal screening. Last screening mammogram was performed less than 1 month ago. Patient History: Menarche at age 18. First Full-Term at age 27. Postmenopausal. Risk Values: Viviana 5 year model risk: 1.6%. NCI Lifetime model risk: 6.8%. Tissue Density: Right: The breasts are heterogeneously dense, which may obscure small masses. Findings: Analyzed By CAD. Areas of asymmetric density involving the outer and central right breast are improved upon compression. Overall Assessment: Incomplete: need additional imaging evaluation, BI-RAD 0 Management: Diagnostic Breast Ultrasound of the right breast. . Results were given to the patient verbally at the time of exam. Patient should continue monthly self-breast exams. A clinical breast exam by your physician is recommended on an annual basis. This exam should not preclude additional follow-up of suspicious palpable abnormalities. Note on Viviana scores and lifetime risk: 1. A Viviana score greater than 3% is considered moderate risk. If this is the case, consider specialist referral to assess eligibility for a risk reducing agent. 2. If overall lifetime risk for the development of breast cancer is 20% or higher, the patient may qualify for future screening with alternating mammogram and breast MRI. [facility], , 01/19/2025 3:29 PM. Electronically signed and approved by: Robert Gardiner M.D. Radiologis
--- NOTE | 2025-01-19 15:46 | USB ---
Reason for Exam: Additional evaluation requested from abnormal screening. Patient History: Menarche at age 18. First Full-Term at age 27. Postmenopausal. Risk Values: Viviana 5 year model risk: 1.6%. NCI Lifetime model risk: 6.8%. Technique: Method: Targeted. Doppler: Color. Patient Position: Supine. Prior Study Comparison: 12/01/2023 Bilateral Screening Mammogram, [facility]. 01/27/2024 Left Diagnostic Mammogram, [facility]. 01/13/2025 Bilateral MG screening mammo w CAD, [facility]. Findings: The lateral section of the breast of the right breast, the periareolar of the right breast, the axilla of the right breast and the retroareolar of the right breast were scanned. A limited ultrasound of 6 to 12:00 position right breast , axilla and retro-areolar region were reviewed. No solid or cystic masses are identified.. Overall Assessment: Probably benign, BI-RAD 3 Management: Diagnostic Mammogram of the right breast in 6 months. A clinical breast exam by your physician is recommended on an annual basis and results should be correlated with mammographic findings. This exam should not preclude additional follow-up of suspicious palpable abnormalities. Results were given to the patient verbally at the time of exam. [facility], , 01/19/2025 3:43 PM. Electronically signed and approved by: Robert Gardiner M.D. Radiologis
== END | disposition home or self-care (01) ==
LOC: RADMAMWWP 14:49
PROVIDERS: ATTEND Family Medicine
DX: R92.8 Other abnormal and inconclusive findings on diagnostic imaging of breast (principal); R92.331 Mammographic heterogeneous density, right breast; Z78.0 Asymptomatic menopausal state
CPT/HCPCS: 77061; 77065